=== PATIENT | male | born 1945 | race Caucasian/White ===

== ENCOUNTER 2024-03-09 11:19 | Inpatient (IN) | payer OTHER, MEDICARE, SELFPAY ==
[2024-03-09] VITALS (9 sets, daily range): BP systolic 145–181; BP diastolic 84–110; PULSE 84–105; RESP 14–25; TEMP 36.7–37; O2SAT 91–97; BMI 41.5
--- NOTE | 2024-03-09 11:30 | ECG_ITS ---
[facility] Test Date: 2024-03-09 Pat Name: Luis Eduardo Hernandez Department: Room: Gender: Male Cardiology Physician: : 1945 Requested By: Concepcion Cervantes Order Number: [id number] Reading MD: CHARLES KING Measurements Intervals [place] Rate: 106 P: 0 DE: 0 QRS: 41 QRSD: 89 T: -7 QT: 344 QTc: 459 Interpretive Statements ATRIAL FIBRILLATION WITH RAPID VENTRICULAR RESPONSE LOW QRS VOLTAGE IN PRECORDIAL LEADS [QRS DEFLECTION < 1.0 mV IN CHEST LEADS] NONSPECIFIC ST & T-WAVE ABNORMALITY ABNORMAL RHYTHM ECG INTERPRETATION BASED ON A DEFAULT AGE OF 40 YEARS No previous ECG available for comparison Electronically Signed On 03-09-2024 16:07:01 CHILDREN'S AUTHOR by CHARLES KING [id number]
--- NOTE | 2024-03-09 11:45 | XR_ITS ---
WS: [id number] Exam: XR chest 1V portable [id number] Date/Time of Exam: 03/09/2024 11:49 AM Reason For Exam: sob No priors. There is RIGHT basal pleural effusion with compressive atelectasis of the RIGHT lower lobe. The LEFT lung is clear. No infiltrates. No pneumothorax. Heart size is top limits normal. The mediastinum is n ormal in contour. Bony structures appear normal. XR/XR chest 1V portable [id number] IMPRESSION: 1. RIGHT basal pleural effusion with compressive atelectasis of the RIGHT lower lobe.
--- NOTE | 2024-03-09 11:56 | ED_ITS ---
HPI - Arrhythmia/Palpitations 2 General: Chief Complaint: Arrhythmia/Palpitations Stated Complaint: cough, irregular heart beat([facility] Time Seen by Provider: 03/09/24 11:42 Source: patient Mode of arrival: ambulatory Limitations: no limitations History of Present Illness: 78-year-old male who states he went to [facility] clinic today because he been having cough congestion productive cough for last 2 days. He states that when there they noticed he had irregular heartbeat did an EKG and was noticing that he is in A-fib. Patient has no known history of A-fib states that he is not on any blood thinners she denies any chest pain or fever Associated symptoms: Deny nausea or vomiting Related Data Home Medications Medication Instructions Recorded Confirmed dextromethorphan-guaifenesin ER 60 1 tab PO Q12H 03/09/24 03/09/24 mg-1,200 mg tab,extend release,12hr (Mucinex DM) byzdix-YP-EK-acetamin 25 mg(n)-10 30 ml PO Q8H PRN cough and 03/09/24 03/09/24 mg-20 mg(d)-650 mg/30 mL congestion liquids,seq (Day-Night Severe Cold-Flu) Allergies Allergy/AdvReac Type Severity Reaction Status Date / Time No Known Allergies Allergy Verified 03/09/24 11:37 Review of Systems 2 Const: Denies: fever(s), chills, body aches or change in appetite ENMT: Denies: throat pain or dental pain Card: Denies: chest pain Resp: Reports: productive cough GI: Denies: abdominal pain, nausea, vomiting or diarrhea : Denies: dysuria Musc: Denies: neck pain or back pain Skin/Breast: Denies: rash Neuro: Denies: headache(s) Physical Exam 2 Const: COMMON NORMALS: no acute distress, patient oriented x3 and healthy appearing HENMT: COMMON NORMALS: normocephalic and atraumatic HEAD & SCALP: n ormocephalic and atraumatic Neck/C-Spine: COMMON NORMALS: full ROM and supple Chest: COMMONS NORMALS: normal inspection of the chest Resp: COMMON NORMALS: normal respiratory effort, No retractions, No use of accessory muscles and clear to auscultation bilaterally AUSCULTATION: clear to auscultation bilaterally Cardio: COMMON NORMALS: No murmurs present (Cardio) RATE: tachycardic R HYTHM: abnormal rhythm irregularly irregular GI: COMMON NORMALS: Normal to inspection, nondistended, normoactive bowel sounds present, Soft to palpation, non-tender and no masses PALPATION: Yes Soft to palpation Extremity: COMMON NORMALS: normal to inspection and full ROM Neuro: COMMON NORMALS: patient oriented x3, moves all extremities and no focal motor deficits Psych: COMMON NORMALS: mental status grossly normal, Normal thought process present and cooperative THOUGHT PROCESS: Normal thought process present Skin: COMMON NORMALS: no rashes or lesions noted and no wounds GENERAL SKIN EXAM: no rashes or lesions noted Course 2 Vital Signs: Vital signs: Vital Signs Temperature 98.0 F 03/09/24 11:29 Pulse Rate 88 03/09/24 13:33 Respiratory Rate 14 03/09/24 11:29 Blood Pressure 176/108 03/09/24 13:33 Pulse Oximetry 96 03/09/24 13:33 Oxygen Delivery Me thod Room Air 03/09/24 13:33 MDM - Arrhythmia/Palpitations Medical Decision Making Patient presents here with new onset A-fib patient also with lower extreme edema and pleural effusion likely has undiagnosed CHF heart rate here improved after Cardizem I spoke to the hospitalist will admit at this time. Medical Records I reviewed the patient's medical records. Lab Data I reviewed the patient's lab results. 03/09/24 12:28 03/09/24 12:28 Radiology Impressions Chest X-Ray 03/09/24 11:45 IMPRESSION: 1. RIGHT basal pleural effusion with compressive atelectasis of the RIGHT lower lobe. Laboratory Results WBC 8.16 10^3/uL (3.29-11.43) 03/09/24 12:28 RBC 4.63 10^6/uL (3.85-5.65) 03/09/24 12:28 Hgb 14.20 g/dL (11.27-16.99) 03/09/24 12:28 Hct 42.4 % (37-53) 03/09/24 12:28 MCV 91.6 fl (82-101) 03/09/24 12:28 MCH 30.7 pg (27-33) 03/09/24 12: MCHC 33.5 g/dL (30-55) 03/09/24 12:28 RDW 13.9 % (12.1-15.1) 03/09/24 12:28 Plt Count 185 10^3/cmm (157-399) 03/09/24 12:28 MPV 9.6 fL (7.4-10.4) 03/09/24 12:28 Neut % (Auto) 75.5 % 03/09/24 12:28 Lymph % (Auto) 13.0 % 03/09/24 12:28 Glenn % (Auto) 9.2 % 03/09/24 12:28 Eos % (Auto) 0.9 % 03/09/24 12:28 Baso % (Auto) 1.0 % 03/09/24 12:28 Neut # (Auto) 6.17 10^3/uL (1.8-7.7) 03/09/24 12:28 Lymph # (Auto) 1.1 10^3/uL (0.8-4.8) 03/09/24 12:28 Glenn # (Auto) 0.8 10^3/uL (0.2-0.9) 03/09/24 12:28 Eos # (Auto) 0.1 10^3/uL (0.0-0.8) 03/09/24 12:28 Baso # (Auto) 0.1 10^3/uL (0.0-0.1) 03/09/24 12:28 Nucleated RBC % (auto) 0 % 03/09/24 12:28 Nucleated RBCs # 0.0 /100WBC 03/09/24 12:28 PT 15.00 SECONDS (12.1-14.9) H 03/09/24 12:28 INR 1.14 (0.8-1.2) 03/09/24 12:28 Sodium 140 mmol/L (136-145) 03/09/24 12:28 Potassium 3.9 mmol/L (3.5-5.1) 03/09/24 12:28 Chloride 103 mmol/L (98-107) 03/09/24 12:28 Carbon Dioxide 23 mmol/L (22-29) 03/09/24 12:28 Anion Gap 17.9 (5-19) 03/09/24 12:28 BUN 12 mg/dL (8-23) 03/09/24 12:28 Creatinine 0.7 mg/dL (0.7-1.2) 03/09/24 12:28 GFR Calculation Not Reportable 03/09/24 12:28 Glucose 116 mg/dL (65-115) H 03/09/24 12:28 Calculated Osmolality 291 mOsm/kg (285-295) 03/09/24 12:28 Calcium 9.2 mg/dL (8.5-10.5) 03/09/24 12:28 Total Bilirubin 1.6 mg/dL (0.15-1.2) H 03/09/24 12:28 AST 38 U/L (0-40) 03/09/24 12:28 ALT 14 U/L (0-41) 03/09/24 12:28 Alkaline Phosphatase 111 U/L (40-130) 03/09/24 12:28 NT-Pro-B Natriuret Pep 1592 pg/mL (0-450) H 03/09/24 12:28 Total Protein 7.1 g/dL (6.6-8.7) 03/09/24 12:28 Albumin 3.9 g/dL (3.5-5.2) 03/09/24 12:28 Globulin 3.2 g/dL (1.3-4.6) 03/09/24 12:28 All radiology interpretation(s) finalized by discharge EKG Data EKG 1: I personally reviewed and interpreted this EKG as follows: EKG interpretation date: 03/09/24 EKG interpretation time: 11:30 Interpretation: afib hr [address] elevation qrs 89 qtc 406 Other EKG comments: Chest X-Ray 03/09/24 11:45 IMPRESSION: 1. RIGHT basal pleural effusion with compressive atelectasis of the RIGHT lower lobe. Discharge Plan Discharge Patient Disposition: Admitted As Inpatient Clinical Impression: Atrial fibrillation, Pleural effusion Condition: Stable Prescriptions: No Action dextromethorphan-guaifenesin [Mucinex DM] 60-1,200 mg Tablet Extended Release 12 Hr 1 tab PO Q12H Day-Night Severe Cold-Flu 14-92-34-650 mg/30 mL Liquid, Sequential 30 ml PO Q8H PRN (Reason: cough and congestion ) Coding Level of Care Code ED Coiled Tubing Supervisor for Chg Radha
[2024-03-09 12:38] LABS: Basophils # 0.1 10^3/uL (0.0-0.1); Eosinophils # 0.1 10^3/uL (0.0-0.8); Eosinophils % 0.9 %; Hematocrit 42.4 % (37-53); Lymphocytes # 1.1 10^3/uL (0.8-4.8); Mean Corpuscular HGB Conc 33.5 g/dL (30-55); Mean Corpuscular Hemoglobin 30.7 pg (27-33); Mean Corpuscular Volume 91.6 fl (82-101); Mean Platelet Volume 9.6 fL (7.4-10.4); Monocytes # 0.8 10^3/uL (0.2-0.9); Monocytes % 9.2 %; Neutrophils # 6.17 10^3/uL (1.8-7.7); Neutrophils % 75.5 %; Nucleated Red Blood Cells % 0 %; Platelet Count 185 10^3/cmm (157-399); Red Blood Count 4.63 10^6/uL (3.85-5.65); Red Cell Distribution Width 13.9 % (12.1-15.1); White Blood Count 8.16 10^3/uL (3.29-11.43)
[2024-03-09] MEDS: dilTIAZem 5 mg/mL SDV 5 mL 10 MG IVP (12:38)
[2024-03-09 12:44] LABS: INR 1.14 (0.8-1.2)
[2024-03-09 12:57] LABS: Alanine Aminotransferase 14 U/L (0-41); Albumin Level 3.9 g/dL (3.5-5.2); Alkaline Phosphatase 111 U/L (40-130); Anion Gap 17.9 (5-19); Aspartate Amino Transferase 38 U/L (0-40); Blood Urea Nitrogen 12 mg/dL (8-23); Calcium 9.2 mg/dL (8.5-10.5); Carbon Dioxide 23 mmol/L (22-29); Chloride 103 mmol/L (98-107); Globulin 3.2 g/dL (1.3-4.6); Glucose 116 mg/dL (65-115); NT Pro B Type Natriuretic Pept 1592 pg/mL (0-450); Osmolality Calculated 291 mOsm/kg (285-295); Potassium 3.9 mmol/L (3.5-5.1); Sodium 140 mmol/L (136-145); Total Bilirubin 1.6 mg/dL (0.15-1.2); Total Protein 7.1 g/dL (6.6-8.7)
[2024-03-09] MEDS: FUROsemide 10 mg/mL SDV 10mL 60 MG IVP (13:21)
[2024-03-09] MEDS: cefTRIAXone 1,000 mg SDV 1000 MG IVP (13:22)
[2024-03-09 13:53] LABS: Covid PCR NEGATIVE (Negative); Influenza A NEGATIVE (Negative); Influenza B NEGATIVE (Negative); Respiratory Syncytial Virus Ce NEGATIVE (Negative)
--- NOTE | 2024-03-09 14:30 | P.HP_ITS ---
Providers/Chief Complaint 2 Chief Complaint: cough, irregular heart beat([facility] History of Present Illness Luis Eduardo Hernandez is a 78 year old male who present to the hospital for lower extremity swelling, palpitations, he [facility] who was sent to the ER for A-fib RVR. Patient is stating that if he is working fine and able to carry out daily activities he would not see a doctor. He has been experiencing lower extremity swelling for quite some time, has not been diagnosed with [place] CHF coronary disease A-fib atrial flutter hypertension or diabetes. In the ER he has been diagnosed with A-fib RVR he has received diltiazem along Lasix. ER doctor treated him for pneumonia but x-ray is showing atelectasis, patient is endorsing chest congestion, white sputum production with cough no fever nausea vomiting or diarrhea. Patient is not endorsing chest pain Patient is stating that he does not understand the concept of CHF if he is able to carry out his daily activities. Review of Systems 2 Const: Denies: fever(s) Eyes: Denies: change in vision ENMT: Denies: throat pain Card: Reports: palpitations and swelling of feet/ankles Resp: Reports: dyspnea GI: Denies: abdominal pain Medications/Allergies Home Medications Medication Instructions Recorded Confirmed Last Taken Type dextromethorphan-guaifenesin ER 60 1 tab PO Q12H 03/09/24 03/09/24 03/08/24 History mg-1,200 mg tab,extend release,12hr (Mucinex DM) phsxlf-DC-LU-acetamin 25 mg(n)-10 30 ml PO Q8H PRN cough and 03/09/24 03/09/24 Unknown History mg-20 mg(d)-650 mg/30 mL congestion liquids,seq (Day-Night Severe Cold-Flu) Allergies Allergy/AdvReac Type Severity Reaction Status Date / Time No Known Allergies Allergy Verified 03/09/24 11:37 PFSH Acute 2 PFSH: Medical History No pertinent past medical history Vitals/I&O/Wt Last Vital Signs Temp 98.0 F 03/09/24 11:29 Pulse 88 03/09/24 13:33 Resp 14 03/09/24 11:29 BP 176/108 03/09/24 13:33 Pulse Ox 96 03/09/24 13:33 O2 Del Method Room Air 03/09/24 13:33 Weight last 48 hrs Weight 135.171 kg Physical Exam 2 Narrative: Morbidly obese male Sitting at the bedside Awake and alert Currently on room air Hypertensive A-fib RVR Sign of fluid overload present No audible stridor or wheezing No active chest pain Pleasant and cooperative Nonfocal neuroexam Data 03/09/24 12:28 03/09/24 12:28 Micro: Microbiology 03/09/24 13:20 Blood Culture - Preliminary Blood SPECIMEN COLLECTED 03/09/24 12:46 Blood Culture - Preliminary Blood SPECIMEN COLLECTED A&P Assessment and plan (1) Atrial fibrillation: (2) New onset of congestive heart failure: (3) Morbidly obese: (4) Sleep apnea: Plan New onset CHF Start IV diuresis Significant signs of fluid overload Currently on room air A-fib RVR new onset Start patient on Eliquis 5 mg twice daily Sam Vascor 3 Start patient on Cardizem 30 mg every 6 hours Echo has been requested, will request pulse ox to rule out sleep apnea Hypertension: Will add low-dose lisinopril for now along diltiazem and Lasix Check TSH, D-dimer, B12, A1c level Cardiac diet Full code Attestations 2 Medical Necessity Statement*: Anticipating less than 2 midnights for management evaluation of A-fib RVR, new onset CHF, Diagnoses Atrial fibrillation I48.91 New onset of congestive heart failure I50.9 Morbidly obese E66.01 Sleep apnea G47.30
[2024-03-09] MEDS: AZITHROMYCIN ADD-Vantage 500 MG in 0.9% NaCl ADD-Vantage 250 ML 250 MG IV (14:40)
[2024-03-09 15:08] LABS: D Dimer 1.35 ug/mLFEU (0-0.59)
--- NOTE | 2024-03-09 18:30 | USCV_ITS ---
Luis Eduardo Hernandez Age: 78 Gender: M : 1945 Exam Date: 03/09/2024 22:03 Ordering Phys: Luis Eduardo Dahl MD Technologist: SUREKHA [place] [facility] [place] chf, history of atrial fibrillation BP: 162 / 100 HR: 88 Rhythm: Atrial fibrillation Technical Quality: Adequate MEASUREMENTS (Male / Female) Normal Values 2D ECHO LV Diastolic Diameter PLAX 3.1 cm 4.2 - 5.9 / 3.9 - 5.3 cm IVS Diastolic Thickness 1.6 cm 0.6 - 1.0 / 0.6 - 0.9 cm IVS Systolic Thickness 2.1 cm LVPW Diastolic Thickness 1.6 cm 0.6 - 1.0 / 0.6 - 0.9 cm LVPW Systolic Thickness 1.7 cm LVOT Diameter 2.2 cm LV Ejection Fraction 2D Teich 62.3 % LV Ejection Fraction MOD 4C 71.5 % LV Ejection Fraction MOD 2C 47.0 % LV Ejection Fraction 2C AL 48.0 % LA Diameter 2.1 cm Aorta at Sinotubular Diameter 3.0 cm IVC Diameter 3.0 cm M-MODE LA Ao Ratio MM 1.2 AV Cusp Separation MM 1.9 cm DOPPLER AV Peak Velocity 143.0 cm/s LVOT Peak Velocity 86.0 cm/s AV Area Cont Eq vti 1.9 cm squared AV Area Cont Eq pk 2.2 cm squared MV Peak Velocity 103.0 cm/s MV Area PHT 4.3 cm squared Mitral E to A Ratio 0.0 TR Peak Velocity 222.0 cm/s TR Peak Gradient 19.7 mmHg PV Peak Velocity 101.0 cm/s FINDINGS Left Ventricle Possibly normal LV size ejection fraction of 65%. No gross wall motion normalities. Right Ventricle Possibly normal RV size ejection fraction Right Atrium Appears to be moderately dilated. LE near echodensity in the right atrium, possible prominent eustachian valve Left Atrium Appears to be mildly dilated Mitral Valve No gross abnormalities noted Aortic Valve No gross abnormalities noted Tricuspid Valve Mild tricuspid valve regurgitation. The PA pressure estimation could be misleading because of the poor Doppler signal.- Calculated as 35 mmHg Pulmonic Valve No gross abnormalities noted Pericardium Aorta Normal aortic annulus size. IVC Dilated IVC with decreased respiratory variation. CONCLUSIONS Possibly normal LV size ejection fraction of 65%. No gross wall motion normalities. Moderate biatrial enlargement A linear echodensity in the right atrium, may suggest prominent eustachian valve Mild tricuspid valve regurgitation. Estimated PA pressure 35 mmHg, could be misleading because of the poor Doppler signals There is no pericardial effusion. Technically difficult study because of poor apical windows Dr Laurent Hammond MD FACC (Electronically Signed) Final Date: 10 March 2024 07:31 S
[2024-03-09] MEDS: dilTIAZem 30 mg Tablet PO ×2 (18:49→23:59)
[2024-03-09] MEDS: magnesium oxide 400 mg tablet PO (18:49)
[2024-03-09 19:07] LABS: Thyroid Stimulating Hormone 4.02 uIU/mL (0.27-4.20)
[2024-03-09 20:09] LABS: Troponin(5th) Baseline 21 ng/L (0-15)
--- NOTE | 2024-03-09 20:36 | ECG_ITS ---
[facility] Date: 2024-[facility]-09 Pat Name: Luis Eduardo Hernandez Department: Room: 111 Gender: Male Seismic Prospecting Observer: : 1945 Requested By: Luis Eduardo Dahl Order Number: [id number] Markie MD: Laurent Hammond M.D. Measurements Intervals [place] Rate: 92 P: 0 NC: 0 QRS: 52 QRSD: 76 T: 15 QT: 353 QTc: 438 Interpretive Statements ATRIAL FIBRILLATION LOW QRS VOLTAGE IN PRECORDIAL LEADS [QRS DEFLECTION < 1.0 mV IN CHEST LEADS] NONSPECIFIC ST & T-WAVE ABNORMALITY ABNORMAL RHYTHM ECG Compared to ECG 03/09/2024 11:30:50 No significant changes Electronically Signed On 03-11-2024 01:11:09 ATHLETICS DIRECTOR by Laurent Hammond M.D. [id number]
--- NOTE | 2024-03-09 21:53 | PC.RESP ---
overnight pulse ox started at 2153. Patient on baseline room air.
[2024-03-09 22:04] LABS: Troponin 5 2HR 20.55 ng/L (0-15)
[2024-03-09 22:06] LABS: Troponin 5 2HR Delta -0.45 ABS# (0-10)
[2024-03-09 22:23] LABS: Estmated Average Glucose 103; Hemoglobin A1C 5.2 % (4.0-6.0)
[2024-03-09] MEDS: lisinopril 10 mg Tablet PO (22:32)
[2024-03-10] VITALS (12 sets, daily range): BP systolic 123–155; BP diastolic 74–105; PULSE 73–101; RESP 17–24; TEMP 36.8–37.8; O2SAT 96–98
--- NOTE | 2024-03-10 00:36 | ECG_ITS ---
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 Measurements Intervals [place] Rate: 86 P: 0 OK: 0 QRS: 55 QRSD: 83 T: -37 QT: 383 QTc: 461 Interpretive Statements ATRIAL FIBRILLATION WITH ABERRANT CONDUCTION OR VENTRICULAR PREMATURE COMPLEXES NONSPECIFIC ST & T-WAVE ABNORMALITY Compared to ECG 03/09/2024 21:47:22 Ventricular premature complex(es) now present Aberrant conduction of supraventricular beat(s) now present T-wave abnormality still present Electronically Signed On 03-11-2024 01:11:13 EMBRYOLOGY PROFESSOR by Laurent Hammond M.D. [id number]
[2024-03-10 04:02] LABS: Basophils # 0.1 10^3/uL (0.0-0.1); Basophils % 0.6 %; Eosinophils # 0.1 10^3/uL (0.0-0.8); Eosinophils % 0.5 %; Hematocrit 41.4 % (37-53); Lymphocytes # 1.3 10^3/uL (0.8-4.8); Lymphocytes % 12.5 %; Mean Corpuscular HGB Conc 33.6 g/dL (30-55); Mean Corpuscular Volume 92.4 fl (82-101); Mean Platelet Volume 9.4 fL (7.4-10.4); Monocytes # 1.1 10^3/uL (0.2-0.9); Monocytes % 11.1 %; Neutrophils # 7.58 10^3/uL (1.8-7.7); Nucleated Red Blood Cells % 0 %; Platelet Count 188 10^3/cmm (157-399); Red Blood Count 4.48 10^6/uL (3.85-5.65)
[2024-03-10 04:26] LABS: Blood Urea Nitrogen 13 mg/dL (8-23); Calcium 9.3 mg/dL (8.5-10.5); Carbon Dioxide 26 mmol/L (22-29); Chloride 102 mmol/L (98-107); Glucose 116 mg/dL (65-115); Magnesium 1.9 mg/dL (1.7-2.3); Osmolality Calculated 289 mOsm/kg (285-295); Sodium 139 mmol/L (136-145)
[2024-03-10 04:43] LABS: Anion Gap 14.8 (5-19); Potassium 3.8 mmol/L (3.5-5.1)
[2024-03-10] MEDS: acetaminophen 500 mg Tablet PO (04:45)
[2024-03-10] MEDS: dilTIAZem 30 mg Tablet PO ×3 (06:24→17:33)
--- NOTE | 2024-03-10 08:19 | CTR_ITS ---
PROCEDURE INFORMATION: Exam: CT Chest With Contrast; Diagnostic Exam date and time: 03/10/2024 9:25 AM Age: 78 years old Clinical indication: Shortness of breath; Additional info: Right pleural effusion TECHNIQUE: Imaging protocol: Diagnostic computed tomography of the chest with contrast. Radiation optimization: All CT scans at this facility use at least one of these dose optimization techniques: automated exposure control; mA and/or kV adjustment per patient size (includes targeted exams where dose is matched to clinical indication); or iterative reconstruction. Contrast material: OMNI 350; Contrast volume: 100 ml; Contrast route: INTRAVENOUS (IV); COMPARISON: CR XR chest 1V portable [id number] 03/09/2024 11:49 AM RADIATION DOSE METRICS: Total DLP (mGy-cm): 703.57 FINDINGS: Lungs: Multiple granulomas at the lung bases. Right lower lobe atelectasis adjacent to pleural effusion. Pleural spaces: Moderate-sized right pleural effusion. Heart: Plaque-like calcification along the anterior and inferior pericardial reflection. Coronary arteries: No calcified coronary atherosclerotic disease. Lymph nodes: Left hilar and mediastinal calcified lymph nodes. Vasculature: Unremarkable. No aortic aneurysm. Adrenal glands: Indeterminate right adrenal mass measuring 1.7 x 1.5 cm. Bones/joints: Diffuse degenerative change of the visualized osseous structures. Soft tissues: Unremarkable. CT/CT chest w con* [id number] IMPRESSION: 1. Nonspecific right pleural effusion with associated basilar atelectasis, difficult to exclude superimposed infection. No indication of empyema. 2. Findings which can be seen in constrictive pericarditis. Correlate clinically. Alternatively pericardial calcifications may represent previous infection/insult. 3. Indeterminate right adrenal mass. Recommend MRI dedicated adrenal protocol for further assessment on an outpatient basis.
--- NOTE | 2024-03-10 08:35 | P.PN_ITS ---
Subjective 2 Subjective: History and physical. Denies any chest pain currently. Is coughing up some colored sputum. No vomiting. Medications: Reviewed: Yes Vitals/I&O/Wt Last Vital Signs Temp 98.5 F 03/10/24 08:00 Pulse 88 03/10/24 08:00 Resp 24 H 03/10/24 08:00 BP 148/98 03/10/24 08:00 Pulse Ox 97 03/10/24 08:00 O2 Del Method Room Air 03/10/24 08:00 03/09/24 03/10/24 03/10/24 22:59 06:59 14:59 Intake Total 650 / 650 Output Total 260 / 260 300 / 560 Balance 390 / 390 -300 / 90 Weight last 48 hrs Weight 135.987 kg Weight 135.171 kg Weight 135.171 kg Physical Exam 2 Narrative: General Exam no distress Neck is supple Cardiovascular irregular, irregular with a 2/6 systolic murmur Lungs clear, decreased breath sounds right lung Abdomen is soft Extremities no cyanosis. 3+ edema noted to the knees Data 03/10/24 03:45 03/10/24 03:45 Micro: Microbiology 03/09/24 13:20 Blood Culture - Preliminary Blood SPECIMEN COLLECTED 03/09/24 12:46 Blood Culture - Preliminary Blood SPECIMEN COLLECTED A&P Assessment and plan (1) New onset of congestive heart failure: Clinically patient has heart failure. Echocardiogram is back demonstrating preserved EF. Consistent with diastolic heart failure. May be exacerbated by A-fib Continue diuresis, Lasix 40 mg IV every 12 hours Cardiology consultation DOMENIC inhibitor (2) Atrial fibrillation: Diltiazem initiated. Currently on 30 mg every 6 hours with good response and heart rate Anticoagulation with apixaban was started. This will be have to be held because a right thoracentesis may be indicated. Will switch to Lovenox. Cardiology consult as above TSH and magnesium checked and normal (3) Pleural effusion: Could be seen with heart failure, but also a possible concern with parapneumonic effusion. Will obtain thoracentesis. Apixaban was started so we will have to hold off on this until perhaps tomorrow. Hold on any further dosing. (4) Pneumonia: Continue Rocephin and azithromycin Sputum culture COVID testing was done and negative Plan Other medical problems as as listed in past medical history Full code Lovenox will suffice for DVT prophylaxis along with SCDs. Attestations 2 Medical Necessity Statement*: Needs continued hospital stay for evaluation of cardiac arrhythmia, treatment of pneumonia, treatment of CHF with IV diuresis Diagnoses New onset of congestive heart failure I50.9 Atrial fibrillation I48.91 Pleural effusion J90 Pneumonia J18.9 Time Spent (min) 24
[2024-03-10] MEDS: potassium chloride ER 20 mEq Tablet PO (08:52)
[2024-03-10] MEDS: FUROsemide 10 mg/mL SDV 4mL 40 MG IVP ×2 (08:52→20:16)
[2024-03-10] MEDS: lisinopril 10 mg Tablet PO (08:52)
[2024-03-10] MEDS: AZITHROMYCIN ADD-Vantage 500 MG in 0.9% NaCl ADD-Vantage 250 ML 250 MG IV (08:52)
[2024-03-10] MEDS: apixaban 5 mg Tablet PO ×2 (08:52→20:16)
[2024-03-10] MEDS: cefTRIAXone 1,000 mg SDV 1000 MG IVP (08:52)
[2024-03-10] MEDS: sennosides-docusate Tablet 1 TAB PO (08:52)
[2024-03-10 09:11] LABS: Procalcitonin 0.08 ng/mL (0-0.5)
--- NOTE | 2024-03-10 10:31 | PC.CHAP ---
Pastoral Care Encounter/Spiritual Assessment Type of Contact [] Declined finished garment inspector visit [] Patient/Family/Request visit [] Outpatient visit [] Follow-up visit [] Physician referral [] Code/Alert [] Routine visit [] Staff referral [] Actively dying [] Patient sleeping [] Family support [] [] Out of room [] Palliative care [] [x] Receiving care in room [] Pre-surgical visit [] Trauma [] Long length of stay [] ICU visit [] Other: Relational/Emotional Strength [] Patient feels connected with others/family/visitors/staff [] Distress [] Loneliness/isolation [] Abandonment Spirituality of Patient [] Person of Anna [] Attends Pentecostalism of their Anna [] Believes in Prayer [] Reads Bible or Taoism materials [] There are Spiritual issues to be addressed Continuous Drier Helper Interventions [] Prayer [] Active listening [] Non-anxious presence [] Spiritual/emotional support [] Crisis/trauma care [] Spiritual counseling [] Bereavement support [] Provided bereavement packet [] Provided Bible/devotional materials [] Provided toy/stuffed animal, coloring book to patient or family member [] Provided Communion [] Anointing/[place] [] Salvation [] Completed spiritual assessment [] Other: Impact on Illness or Injury [] Angry [] Fearful [] Anxious [] Often cries [] Exhaustion [] Unable to work [] Unable to attend moravian [] Unable to walk/stand [] Unable to read [] Unable to drive [] Unable to eat/drink [] Unable to sleep [] Unable to be with family [] Patient intubated [] Other: Summary Time spent with patient
[2024-03-10] MEDS: carvedilol 3.125 mg Tablet PO (17:33)
--- NOTE | 2024-03-10 20:23 | P.CONIM_ITS ---
<Statement entered by Luis Eduardo Hardy MD - 03/11/24 08:36> Patient was evaluated and cared for in conjunction with an advanced practice practitioner. I personally examined the patient and reviewed the chart and all pertinent data including imaging, telemetry, and laboratory results. I discussed the patient in detail with the advanced practice practitioner. Please see their note for complete H&P testing result and agreed upon plan of care for the patient. 78-year-old male past medical history significant for obesity uncontrolled hypertension admitted with worsening of shortness of breath lower extremity edema weight gain A-fib with rapid ventricular response. Patient was treated with IV diuretics and Cardizem. His heart rate currently under control. We have been asked to assist in his care. He denies any chest pain rule out for non-ST elevation NM. GENERAL: Patient is alert, awake and oriented x3. HEART: Irregularly irregular S1 and S2. No murmur, rub or gallop. LUNGS: Clear to auscultate bilaterally. Abdomen: Distended with abdominal wall edema nontender CENTRAL NERVOUS SYSTEM: Grossly nonfocal. EXTREMITIES: Lower extremities with 2+ edema bilaterally. Assessment and plan Acute decompensated diastolic heart failure Atrial fibrillation rapid ventricle response Morbid obesity Uncontrolled hypertension Plan to diurese patient over next 24 hours with a goal of 1 to 1.5 L negative, increase Lasix to 40 mg 3 times daily and assess the response. Will replenish electrolytes. Start patient on carvedilol Eliquis agreed for stroke prevention from A-fib perspective. Once euvolemic we will ask for stress test to rule out ischemic etiology. Documented by User: Cheryl Ruiz NP 03/10/24 20:52 Providers/Reason For Consult 2 Consulting Physician/Specialty*: Dr. Hardy Reason for Consult*: new onset heart failure, afib Requesting Physician: Dr. Harper Attending Physician: Yobany Harper MD History of Present Illness History of Present Illness Luis Eduardo Hernandez is a 78 year old male who presented to the hospital for lower extremity swelling, palpitations, he was at [facility] and was sent to the ER for A-fib RVR. Patient is stating that if he is working fine and able to carry out daily activities he would not see a doctor. He has been experiencing lower extremity swelling for quite some time, has not been diagnosed with NM CHF coronary disease A-fib atrial flutter hypertension or diabetes. In the ER he received diltiazem and Lasix. He denies chest pain. Review of Systems 2 Narrative: Denies fever, chills/body aches Denies chest pain Reports chronic lower extremity edema Denies shortness of breath Denies nausea/vomiting Denies s/s of stroke Medications/Allergies Home Medications Medication Instructions Recorded Confirmed Last Taken Type dextromethorphan-guaifenesin ER 60 1 tab PO Q12H 03/09/24 03/09/24 03/08/24 History mg-1,200 mg tab,extend release,12hr (Mucinex DM) zngbdu-LX-WA-acetamin 25 mg(n)-10 30 ml PO Q8H PRN cough and 03/09/24 03/09/24 Unknown History mg-20 mg(d)-650 mg/30 mL congestion liquids,seq (Day-Night Severe Cold-Flu) Allergies Allergy/AdvReac Type Severity Reaction Status Date / Time No Known Allergies Allergy Verified 03/09/24 11:37 Current Medications Generic Name Dose Route Start Last Admin Trade Name Freq PRN Reason Stop Dose Admin Acetaminophen 500 mg 03/09/24 18:30 03/10/24 04:45 Acetaminophen 500 Mg Tablet PO 500 mg Q4H PRN Administration fever Apixaban 5 mg 03/10/24 21:00 03/10/24 20:16 Apixaban 5 Mg Tablet PO 5 mg BID@0900,2100 REHANA Administration Carvedilol 3.125 mg 03/10/24 18:00 03/10/24 17:33 Carvedilol 3.125 Mg Tablet PO 3.125 mg BID REHANA Administration Ceftriaxone Sodium 1,000 mg 03/10/24 08:30 03/10/24 08:52 Ceftriaxone 1,000 Mg Sdv IVP 1,000 mg Q24H REHANA Administration Protocol Diltiazem HCl 30 mg 03/09/24 18:30 03/10/24 17:33 Diltiazem 30 Mg Tablet PO 30 mg Q6H REHANA Administration Furosemide 40 mg 03/10/24 21:00 03/10/24 20:16 Furosemide 10 Mg/Ml Sdv 4ml IVP 40 mg TID REHANA Administration Azithromycin 500 mg/ Sodium 250 mls @ 250 mls/hr 03/10/24 08:30 03/10/24 11:19 Chloride IV Infused Q24H REHANA Infusion Protocol Lisinopril 10 mg 03/10/24 09:00 03/10/24 08:52 Lisinopril 10 Mg Tablet PO 10 mg DAILY REHANA Administration Potassium Chloride 20 meq 03/10/24 09:00 03/10/24 08:52 Potassium Chloride Er 20 Meq Tablet PO 20 meq DAILY REHANA Administration Senna/Docusate Sodium 1 tab 03/10/24 09:00 03/10/24 08:52 Sennosides-Docusate Tablet PO 1 tab DAILY REHANA Administration PFSH Acute 2 PFSH: Medical History No pertinent past medical history Vitals/I&O/Wt Last Vital Signs Temp 98.2 F 03/10/24 19:56 Pulse 73 03/10/24 19:56 Resp 23 H 03/10/24 19:56 BP 126/74 03/10/24 19:56 Pulse Ox 98 03/10/24 19:56 O2 Del Method Room Air 03/10/24 19:56 03/10/24 03/10/24 03/10/24 06:59 14:59 22:59 Intake Total 726 / 726 360 / 1086 Output Total 300 / 560 1025 / 1025 200 / 1225 Balance -300 / 90 -299 / -299 160 / -139 Weight last 48 hrs Weight 299 lb 12.8 oz Weight 298 lb Weight 298 lb Physical Exam 2 Narrative: Alert and oriented x4 No acute distress 3+ edema bilateral lower extremities heart rate normal, irregularly irregular rhyth, no murmurs, s1 s2 normal No s/s of stroke present Lungs clear throughout Data 03/11/24 03:43 03/11/24 03:43 Micro: Microbiology 03/09/24 13:20 Blood Culture - Preliminary Blood NEGATIVE TO DATE 03/09/24 12:46 Blood Culture - Preliminary Blood NEGATIVE TO DATE 03/10/24 08:50 Gram Stain - Final Sputum - Expectorated Sputum Other data: Echo CONCLUSIONS Possibly normal LV size ejection fraction of 65%. No gross wall motion normalities. Moderate biatrial enlargement A linear echodensity in the right atrium, may suggest prominent eustachian valve Mild tricuspid valve regurgitation. Estimated PA pressure 35 mmHg, could be misleading because of the poor Doppler signals There is no pericardial effusion. Technically difficult study because of poor apical windows A&P Assessment and plan (1) New onset of congestive heart failure: (2) Atrial fibrillation: Qualifiers: Atrial fibrillation type: unspecified Qualified Code(s): I48.91 - Unspecified atrial fibrillation (3) Morbidly obese: (4) Pleural effusion: (5) Sleep apnea: Qualifiers: Sleep apnea type: unspecified type Qualified Code(s): G47.30 - Sleep apnea, unspecified Plan Patient with clinically evident new onset heart failure and afib rvr. His echo showed normal EF with no wall motion abnormalities. He has risk factors for arrhythmia including obesity, sleep apnea, and previously uncontrolled hypertension. Despite risk factors at some point coronary ischemia will need to be ruled out as cause. He recieved diltiazem 10 mg IV in the ER with improvement of heart rate. Currently on 30 mg q6 hours. Kidney function is good. Patient only about 300 negative. Will increase Lasix from 40 BID to 40 TID. If patient does not have good response to this, may need to add metolazone. Will add coreg 3.125 for heart failure, bp control, and heart rate control. Agree with adding Eliquis 5 mg BID for stroke prevention in the setting of afib. In the future, patient may need stress test to evaluate and help r/o underlying coronary ischemia as cause of new onset afib. Thank you, Dr. Harper, for allowing us to care for this very pleasant 78 year old gentleman. Consult Attestations 2 Medical Necessity Statement: Deferred to primary Coding Level of Care Code Acute Code for [facility] Diagnoses New onset of congestive heart failure I50.9 Atrial fibrillation, unspecified type I48.91 Atrial fibrillation type: unspecified Morbidly obese E66.01 Pleural effusion J90 Sleep apnea, unspecified type G47.30 Sleep apnea type: unspecified type Documented by User: Luis Eduardo Hardy MD 03/11/24 09:44 History of Present Illness History of Present Illness Luis Eduardo Hernandez is a 78 year old male who presented to the hospital for lower extremity swelling, palpitations, he was at [facility] and was sent to the ER for A-fib RVR. Patient is stating that if he is working fine and able to carry out daily activities he would not see a doctor. He has been experiencing lower extremity swelling for quite some time, has not been diagnosed with NM CHF coronary disease A-fib atrial flutter hypertension or diabetes. In the ER he received diltiazem and Lasix. He denies chest pain. Medications/Allergies Home Medications Medication Instructions Recorded Confirmed Last Taken Type dextromethorphan-guaifenesin ER 60 1 tab PO Q12H 03/09/24 03/09/24 03/08/24 History mg-1,200 mg tab,extend release,12hr (Mucinex DM) kiedwe-FL-HV-acetamin 25 mg(n)-10 30 ml PO Q8H PRN cough and 03/09/24 03/09/24 Unknown History mg-20 mg(d)-650 mg/30 mL congestion liquids,seq (Day-Night Severe Cold-Flu) Allergies Allergy/AdvReac Type Severity Reaction Status Date / Time No Known Allergies Allergy Verified 03/09/24 11:37 PFSH Acute 2 PFSH: Medical History No pertinent past medical history Data 03/11/24 03:43 03/11/24 03:43 A&P Assessment and plan (1) New onset of congestive heart failure: (2) Atrial fibrillation: Qualifiers: Atrial fibrillation type: unspecified Qualified Code(s): I48.91 - Unspecified atrial fibrillation (3) Morbidly obese: (4) Pleural effusion: (5) Sleep apnea: Qualifiers: Sleep apnea type: unspecified type Qualified Code(s): G47.30 - Sleep apnea, unspecified Coding Level of Care Code Acute Code for [facility] Diagnoses New onset of congestive heart failure I50.9 Atrial fibrillation, unspecified type I48.91 Atrial fibrillation type: unspecified Morbidly obese E66.01 Pleural effusion J90 Sleep apnea, unspecified type G47.30 Sleep apnea type: unspecified type
[2024-03-11] VITALS (9 sets, daily range): BP systolic 97–164; BP diastolic 64–101; PULSE 66–88; RESP 18–28; TEMP 36.4–36.8; O2SAT 97–98
[2024-03-11] MEDS: dilTIAZem 30 mg Tablet PO ×2 (00:40→06:30)
[2024-03-11 03:54] LABS: Basophils # 0.1 10^3/uL (0.0-0.1); Basophils % 0.8 %; Eosinophils # 0.3 10^3/uL (0.0-0.8); Eosinophils % 2.3 %; Lymphocytes # 2.1 10^3/uL (0.8-4.8); Lymphocytes % 19.4 %; Mean Corpuscular HGB Conc 32.4 g/dL (30-55); Mean Corpuscular Hemoglobin 30.9 pg (27-33); Mean Corpuscular Volume 95.5 fl (82-101); Mean Platelet Volume 9.5 fL (7.4-10.4); Monocytes # 1.3 10^3/uL (0.2-0.9); Monocytes % 11.6 %; Neutrophils # 7.07 10^3/uL (1.8-7.7); Neutrophils % 65.3 %; Nucleated Red Blood Cells % 0 %; Platelet Count 198 10^3/cmm (157-399); Red Cell Distribution Width 14.1 % (12.1-15.1); White Blood Count 10.83 10^3/uL (3.29-11.43)
[2024-03-11 04:15] LABS: Blood Urea Nitrogen 19 mg/dL (8-23); Calcium 9.1 mg/dL (8.5-10.5); Carbon Dioxide 25 mmol/L (22-29); Chloride 102 mmol/L (98-107); Creatinine Clr Calc Pharmacy 98.3455; Glucose 110 mg/dL (65-115); Magnesium 1.8 mg/dL (1.7-2.3); Osmolality Calculated 293 mOsm/kg (285-295); Sodium 140 mmol/L (136-145)
[2024-03-11 04:32] LABS: Anion Gap 16.8 (5-19); Potassium 3.8 mmol/L (3.5-5.1)
[2024-03-11] MEDS: AZITHROMYCIN ADD-Vantage 500 MG in 0.9% NaCl ADD-Vantage 250 ML 250 MG IV (07:49)
[2024-03-11] MEDS: potassium chloride ER 20 mEq Tablet PO (07:50)
[2024-03-11] MEDS: carvedilol 3.125 mg Tablet PO (07:50)
[2024-03-11] MEDS: cefTRIAXone 1,000 mg SDV 1000 MG IVP (07:50)
[2024-03-11] MEDS: sennosides-docusate Tablet 1 TAB PO (07:50)
[2024-03-11] MEDS: apixaban 5 mg Tablet PO (07:51)
[2024-03-11] MEDS: FUROsemide 10 mg/mL SDV 4mL 40 MG IVP (07:51)
[2024-03-11] MEDS: lisinopril 10 mg Tablet PO (07:51)
[2024-03-11] MEDS: metOLazone 5 MG Tablet 2.5 MG PO (08:57)
[2024-03-11] MEDS: potassium chloride ER 20 mEq Tablet 40 MEQ PO (08:58)
--- NOTE | 2024-03-11 09:21 | PC.CHAP ---
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 [] Patient/Family/Request visit [] Outpatient visit [] Follow-up visit [] Physician referral [] Code/Alert [x] Routine visit [] Staff referral [] Actively dying [] Patient sleeping [] Family support [] [] Out of room [] Palliative care [] [] Receiving care in room [] Pre-surgical visit [] Trauma [] Long length of stay [] ICU visit [] Other: Relational/Emotional Strength [x] Patient feels connected with others/family/visitors/staff [] Distress [] Loneliness/isolation [] Abandonment Spirituality of Patient [x] Person of Anna [] Attends Rastafari of their Anna [x] Believes in Prayer [] Reads Bible or Gnosticist materials [] There are Spiritual issues to be addressed Data Collector Interventions [x] Prayer [x] Active listening [] Non-anxious presence [x] Spiritual/emotional support [] Crisis/trauma care [] Spiritual counseling [] Bereavement support [] Provided bereavement packet [] Provided Bible/devotional materials [] Provided toy/stuffed animal, coloring book to patient or family member [] Provided Communion [] Anointing/Ebro [] Salvation [x] Completed spiritual assessment [] Other: Impact on Illness or Injury [] Angry [] Fearful [] Anxious [] Often cries [] Exhaustion [] Unable to work [] Unable to attend oriental orthodox [] Unable to walk/stand [] Unable to read [] Unable to drive [] Unable to eat/drink [] Unable to sleep [] Unable to be with family [] Patient intubated [] Other: Summary Time spent with patient 5 min
--- NOTE | 2024-03-11 11:09 | P.DS_ITS ---
Discharge Providers Date of Admission: 03/10/24 13:17 Date of Discharge: March 11, 2024 Attending Provider at Admission: Raffi Rodriguez MD Attending Provider at Discharge: Yobany Harper MD Diagnoses at Discharge Discharge Diagnosis (1) New onset of congestive heart failure: Status: Acute (2) Atrial fibrillation: Status: Acute Qualifiers: Atrial fibrillation type: unspecified Qualified Code(s): I48.91 - Unspecified atrial fibrillation (3) Morbidly obese: Status: Acute (4) Pleural effusion: Status: Acute (5) Sleep apnea: Status: Acute Qualifiers: Sleep apnea type: unspecified type Qualified Code(s): G47.30 - Sleep apnea, unspecified Reason for Visit Reason for Visit: cough, irregular heart beat([facility] by [facility]). Hospital Course Hospital Course Patient presented to the hospital with lower extremity swelling palpitations and new onset of A-fib with RVR. He reported he did not have a lot of symptoms. He was placed in the hospital, and started on IV diuresis, Eliquis for A-fib, as well as Cardizem. Echo was performed which demonstrated preserved EF. Chest x- ray suggested right pleural effusion and a CT was performed confirming this. There was also question of pneumonia secondary to purulent sputum, and fever. COVID testing was negative. He received Rocephin, and Zithromax while in the hospital. Patient refused evaluation of right pleural effusion with thoracentesis after risks and benefits were discussed. He was willing to take continued medical treatment for his congestive heart failure up until March 11 when he requested to go home. He was not fully diuresed at that time, but did not want to stay despite my efforts to convince him as well as cardiology. He will be discharged to home, with appropriate medications with close follow- up. I believe he needs a repeat chest x-ray in 1 to 2 weeks to check on his right pleural effusion, returning for shortness of breath or recurrent fever. He will finish up antibiotic treatment. Cardiology has written for his diuresis as an outpatient, ongoing medicines for blood pressure and A-fib, and wants him to be evaluated in their clinic in approximately 4 to 5 days. He was given an opportunity to ask questions and agrees with the plan. Physical Exam Narrative: General Exam no distress Neck is supple Cardiovascular irregular irregular with controlled rate of approximately 70 Lungs diminished breath sounds right but no crackles Abdomen soft Extremities 3+ edema bilaterally. Discharge Data Studies Completed and Pending Completed Studies During Hospitalization Category Date Time Status CT chest w con* [id number] Routine Cat Scan 03/10/24 08:19 Completed XR chest 1V portable [id number] Stat Exams 03/09/24 11:45 Completed CV. echo complete* [id number] Routine Ultrasound 03/09/24 18:30 Completed Pending at discharge Category Date Time Status Blood Culture Stat Lab 03/09/24 13:20 Results Sputum Culture and Gram Stain Routine Lab 03/10/24 08:50 Results Radiology Impressions Chest X-Ray 03/09/24 11:45 IMPRESSION: 1. RIGHT basal pleural effusion with compressive atelectasis of the RIGHT lower lobe. Chest CT 03/10/24 08:19 IMPRESSION: 1. Nonspecific right pleural effusion with associated basilar atelectasis, difficult to exclude superimposed infection. No indication of empyema. 2. Findings which can be seen in constrictive pericarditis. Correlate clinically. Alternatively pericardial calcifications may represent previous infection/insult. 3. Indeterminate right adrenal mass. Recommend MRI dedicated adrenal protocol for further assessment on an outpatient basis. Laboratory Results WBC 10.83 10^3/uL (3.29-11.43) 03/11/24 03:43 RBC 4.40 10^6/uL (3.85-5.65) 03/11/24 03:43 Hgb 13.60 g/dL (11.27-16.99) 03/11/24 03:43 Hct 42.0 % (37-53) 03/11/24 03:43 MCV 95.5 fl (82-101) 03/11/24 03:43 MCH 30.9 pg (27-33) 03/11/24 03:43 MCHC 32.4 g/dL (30-55) 03/11/24 03:43 RDW 14.1 % (12.1-15.1) 03/11/24 03:43 Plt Count 198 10^3/cmm (157-399) 03/11/24 03:43 MPV 9.5 fL (7.4-10.4) 03/11/24 03:43 Neut % (Auto) 65.3 % 03/11/24 03:43 Lymph % (Auto) 19.4 % 03/11/24 03:43 [place] % (Auto) 11.6 % 03/11/24 03:43 Eos % (Auto) 2.3 % 03/11/24 03:43 Baso % (Auto) 0.8 % 03/11/24 03:43 Neut # (Auto) 7.07 10^3/uL (1.8-7.7) 03/11/24 03:43 Lymph # (Auto) 2.1 10^3/uL (0.8-4.8) 03/11/24 03:43 [place] # (Auto) 1.3 10^3/uL (0.2-0.9) H 03/11/24 03:43 Eos # (Auto) 0.3 10^3/uL (0.0-0.8) 03/11/24 03:43 Baso # (Auto) 0.1 10^3/uL (0.0-0.1) 03/11/24 03:43 Nucleated RBC % (auto) 0 % 03/11/24 03:43 Nucleated RBCs # 0.0 /100WBC 03/11/24 03:43 PT 15.00 SECONDS (12.1-14.9) H 03/09/24 12:28 INR 1.14 (0.8-1.2) 03/09/24 12:28 D-Dimer 1.35 ug/mLFEU (0-0.59) H 03/09/24 12:28 Sodium 140 mmol/L (136-145) 03/11/24 03:43 Potassium 3.8 mmol/L (3.5-5.1) 03/11/24 03:43 Chloride 102 mmol/L (98-107) 03/11/24 03:43 Carbon Dioxide 25 mmol/L (22-29) 03/11/24 03:43 Anion Gap 16.8 (5-19) 03/11/24 03:43 BUN 19 mg/dL (8-23) 03/11/24 03:43 Creatinine 0.9 mg/dL (0.7-1.2) 03/11/24 03:43 GFR Calculation Not Reportable 03/11/24 03:43 Glucose 110 mg/dL (65-115) 03/11/24 03:43 Estimat Average Glucose 103 03/09/24 12:28 Hemoglobin A1c 5.2 % (4.0-6.0) 03/09/24 12:28 Calculated Osmolality 293 mOsm/kg (285-295) 03/11/24 03:43 Calcium 9.1 mg/dL (8.5-10.5) 03/11/24 03:43 Magnesium 1.8 mg/dL (1.7-2.3) 03/11/24 03:43 Total Bilirubin 1.6 mg/dL (0.15-1.2) H 03/09/24 12:28 AST 38 U/L (0-40) 03/09/24 12:28 ALT 14 U/L (0-41) 03/09/24 12:28 Alkaline Phosphatase 111 U/L (40-130) 03/09/24 12:28 Troponin T Baseline 21 ng/L (0-15) H 03/09/24 19:36 Troponin T 120 Minute 20.55 ng/L (0-15) H 03/09/24 21:30 Delta Troponin T -0.45 ABS# (0-10) L 03/09/24 21:30 Troponin T Hi Sens 6Hr 23.50 ng/L (0-15) H 03/10/24 00:57 Troponin T Hi Sens 6Hr Delta 2.50 ng/L (0-12) 03/10/24 00:57 NT-Pro-B Natriuret Pep 1592 pg/mL (0-450) H 03/09/24 12:28 Total Protein 7.1 g/dL (6.6-8.7) 03/09/24 12:28 Albumin 3.9 g/dL (3.5-5.2) 03/09/24 12:28 Globulin 3.2 g/dL (1.3-4.6) 03/09/24 12:28 Procalcitonin 0.08 ng/mL (0-0.5) 03/10/24 03:45 TSH 4.02 uIU/mL (0.27-4.20) 03/09/24 12:28 Coronavirus (PCR) Negative (Negative) 03/09/24 12:57 Influenza A (PCR) Negative (Negative) 03/09/24 12:57 Influenza Type B (PCR) Negative (Negative) 03/09/24 12:57 RSV (PCR) Negative (Negative) 03/09/24 12:57 Vitals Last Vital Signs Temp 97.5 F L 03/11/24 08:00 Pulse 67 03/11/24 09:29 Resp 28 H 03/11/24 09:29 BP 97/64 03/11/24 09:29 Pulse Ox 97 03/11/24 09:29 O2 Del Method Room Air 03/11/24 09:29 Discharge Plan Discharge Patient Disposition: Home Condition: Stable Prescriptions: New diltiazem HCl 120 mg Capsule,Extended Release 24hr 120 mg PO DAILY 30 Days Qty: 30 0RF furosemide [Lasix] 40 mg tablet 40 mg PO BID Qty: 60 0RF potassium chloride 20 mEq tablet extended release 20 meq PO BID Qty: 60 0RF metolazone 5 mg Tablet 2.5 mg PO DAILY 7 Days Qty: 5 0RF carvedilol 3.125 mg Tablet 3.125 mg PO BID 30 Days Qty: 60 0RF Eliquis 5 mg Tablet 5 mg PO BID@0900,2100 Qty: 60 0RF azithromycin [Zithromax] 500 mg tablet 500 mg PO DAILY 1 Days Qty: 1 0RF Rx Instructions: Take tomorrow 03/12 cefdinir 300 mg capsule 300 mg PO BID 7 Days Qty: 14 0RF Discontinued dextromethorphan-guaifenesin [Mucinex DM] 60-1,200 mg Tablet Extended Release 12 Hr 1 tab PO Q12H Day-Night Severe Cold-Flu 95-61-82-650 mg/30 mL Liquid, Sequential 30 ml PO Q8H PRN (Reason: cough and congestion ) Referrals: Sierra Faustin APRN [Referring] - 03/16/24 2:00 pm (Please arrange for repeat chest x-ray in approximately 1 to 2 weeks.) Bailey Salas FNP [Nurse Practitioner] - 4-7 days (1 week ) Discharge Diet: Cardiac Discharge Activity: Increase activity as tolerated Patient Instructions: Opioid Safety Activity Restrictions/Additional Instructions: Take all medicine as prescribed Take your last dose of Zithromax tomorrow, 7 more days of cefdinir Follow-up with your correspondence renew clerk in 4 to 7 days. BMP will need to be done at that time Follow-up with your primary care 3 to 5 days. I suggested repeat chest x-ray regarding your right pleural effusion as an outpatient in approximately 1 week to 2 weeks. Return for any fever, worsening shortness of breath, worsening swelling Discharge Attestations Time Spent in Discharge Care*: greater than 30 min Quality Metrics Clinical Quality Measures [ No reported AMI, CVA or VTE this stay] Coding Level of Care Code 85497 Total time (in minutes) for Discharge: 35 Diagnoses New onset of congestive heart failure I50.9 Atrial fibrillation, unspecified type I48.91 Atrial fibrillation type: unspecified Morbidly obese E66.01 Pleural effusion J90 Sleep apnea, unspecified type G47.30 Sleep apnea type: unspecified type
--- NOTE | 2024-03-11 14:50 | P.PN_ITS ---
<Statement entered by Luis Eduardo Hardy MD - 03/12/24 21:50> Patient was evaluated and cared for in conjunction with an advanced practice practitioner. I personally examined the patient and reviewed the chart and all pertinent data including imaging, telemetry, and laboratory results. I discussed the patient in detail with the advanced practice practitioner. Please see their note for complete H&P testing result and agreed upon plan of care for the patient. Overall patient feeling better heart rate is under control getting diuresis. He would like to leave as AMA. Advised patient not to leave still he needs diuresis and optimization of medicine for diastolic heart failure but patient adamant and would not like to stay GENERAL: Patient is alert, awake and oriented x3. HEART: Regular S1 and S2. No murmur, rub or gallop. LUNGS: Clear to auscultate bilaterally. CENTRAL NERVOUS SYSTEM: Grossly nonfocal. EXTREMITIES: Lower extremities with out edema bilaterally. Acute decompensated on chronic diastolic heart failure Obesity Sleep apnea New onset of atrial fibrillation Since patient would like to leave therefore we will switch him to oral medications including beta-ken Cardizem diuretics Advised and given heart failure education Advised to be compliant with medications and in case of worsening of shortness of breath PND orthopnea heart failure or any chest pain he should return back to the ER Will follow him up in the clinic Patient would like to leave AMA Subjective 2 Subjective: Patient still did not have a great response to the Lasix. He has a moderate to large right pleural effusion. We recommended the patient stay to get proper diuresis. He is very adamant about leaving. We have educated him that most likely if he leaves without proper treatment he will end up in severe heart failure potentially could or be intubated if he develops severe worsening fluid overload. He verbalized full understanding. He understands the risks and still wants to go. At this time we will have him go home on carvedilol Eliquis 5 mg twice daily diltiazem at the current dose of 120 mg Lasix 40 twice daily with metolazone 2.5 twice daily potassium 20 BID. We have asked him to weigh himself daily and follow back up with us in the clinic within 1 week. He states he is agreeable to this. Medications: Reviewed: Yes Vitals/I&O/Wt Last Vital Signs Temp 97.9 F 03/11/24 14:32 Pulse 88 03/11/24 14:32 Resp 20 H 03/11/24 14:32 BP 145/97 03/11/24 14:32 Pulse Ox 98 03/11/24 14:32 O2 Del Method Room Air 03/11/24 13:57 03/10/24 03/11/24 03/11/24 22:59 06:59 14:59 Intake Total 840 / 1566 826 / 826 Output Total 500 / 1525 100 / 1625 1100 / 1100 Balance 340 / 41 -100 / -59 -274 / -274 Weight last 48 hrs Weight 287 lb 8 oz Weight 299 lb 12.8 oz Weight 298 lb Physical Exam 2 Narrative: Alert and oriented x4 No acute distress 3+ edema bilateral lower extremities heart rate normal, irregularly irregular rhyth, no murmurs, s1 s2 normal No s/s of stroke present Lungs right lower lobe diminished left lung fine crackles Data 03/11/24 03:43 03/11/24 03:43 Micro: Microbiology 03/10/24 08:50 Gram Stain - Final Sputum - Expectorated Sputum Sputum Culture - Preliminary 03/09/24 13:20 Blood Culture - Preliminary Blood NEGATIVE TO DATE 03/09/24 12:46 Blood Culture - Preliminary Blood NEGATIVE TO DATE A&P Assessment and plan (1) New onset of congestive heart failure: (2) Atrial fibrillation: Qualifiers: Atrial fibrillation type: unspecified Qualified Code(s): I48.91 - Unspecified atrial fibrillation (3) Morbidly obese: (4) Pleural effusion: (5) Sleep apnea: Qualifiers: Sleep apnea type: unspecified type Qualified Code(s): G47.30 - Sleep apnea, unspecified Plan Patient with clinically evident new onset heart failure and afib rvr. His echo showed normal EF with no wall motion abnormalities. He has risk factors for arrhythmia including obesity, sleep apnea, and previously uncontrolled hypertension. Despite risk factors at some point coronary ischemia will need to be ruled out as cause. He recieved diltiazem 10 mg IV in the ER with improvement of heart rate. Currently on 30 mg q6 hours. Kidney function is good. Patient only about 300 negative. Will increase Lasix from 40 BID to 40 TID. If patient does not have good response to this, may need to add metolazone. Will add coreg 3.125 for heart failure, bp control, and heart rate control. Agree with adding Eliquis 5 mg BID for stroke prevention in the setting of afib. In the future, patient may need stress test to evaluate and help r/o underlying coronary ischemia as cause of new onset afib. Thank you, Dr. Harper, for allowing us to care for this very pleasant 78 year old gentleman. 03/11/2024 As stated above patient is leaving despite us educating him this is not in his best interest. Instructions were given to the patient on medications as well as daily weights low-salt diet. He verbalized full understanding. We will see him in the clinic in 1 week. Attestations 2 Medical Necessity Statement*: Defer to primary Coding Level of Care Code Acute Code for [facility] Fwd Diagnoses New onset of congestive heart failure I50.9 Atrial fibrillation, unspecified type I48.91 Atrial fibrillation type: unspecified Morbidly obese E66.01 Pleural effusion J90 Sleep apnea, unspecified type G47.30 Sleep apnea type: unspecified type
== END 2024-03-11 14:35 | disposition home or self-care (01) | DRG 291 ==
LOC: ER 16:01 → CSU 18:02
PROVIDERS: Internal Medicine; Admitting Provider Student in an Organized Health Care Education/Training Program; Emergency Provider Emergency Medicine; Visit Provider Internal Medicine
DX: I11.0 Hypertensive heart disease with heart failure (principal); I50.33 Acute on chronic diastolic (congestive) heart failure; Z68.41 Body mass index [BMI] 40.0-44.9, adult; I48.91 Unspecified atrial fibrillation; E66.01 Morbid (severe) obesity due to excess calories; G47.30 Sleep apnea, unspecified
CPT/HCPCS: 0241U; 36415; 71045; 71260; 80048; 80053; 83036; 83735; 83880; 84145; 84443; 84484; 85025; 85378; 85610; 87040; 87070; 87205; 93005; 93306; 94762; 96365; 96375; 96376; 99285; G0378; J0456; J0696; J1940; J3490; J7050

== ENCOUNTER → 2024-03-19 15:00 | Outpatient (BNVA) | payer OTHER, MEDICARE, SELFPAY | PROVIDERS: Visit Provider Nurse Practitioner Family | DX: I48.91 Unspecified atrial fibrillation (principal); J18.9 Pneumonia, unspecified organism; Z86.73 Personal history of transient ischemic attack (TIA), and cerebral infarction without residual deficits; I10 Essential (primary) hypertension; Z79.01 Long term (current) use of anticoagulants | CPT/HCPCS: 99214 ==

== ENCOUNTER 2024-05-28 10:49 | Emergency (ER) | payer OTHER, MEDICARE, SELFPAY ==
[2024-05-28 11:02] VITALS: BP 135/79; PULSE 86; RESP 18; TEMP 36.8; O2SAT 97; BMI 35.5
[2024-05-28 11:35] VITALS: BP 105/68; PULSE 76; O2SAT 95
[2024-05-28 12:22] LABS: Urine Appearance Cloudy (CLEAR); Urine Color Red (Yellow)
[2024-05-28 12:23] LABS: Add Urine Culture? Yes; Add Urine Microscopic? YES; Bacteria Urine TRACE /hpf; Hyaline Casts Urine 0-4 /lpf; RBC Urine >100 /hpf (0-2); Squamous Epithelial Cell Urine 0-4 /hpf (0-5); UA Manual Slide Review YES; UA Slide Review UA Slide Review Perf
--- NOTE | 2024-05-28 12:30 | W.ED.MALEGU ---
HPI - Male Genitourinary General: Chief complaint: Urogenital-Male Stated complaint: urinary Time Seen by Provider: 05/28/24 10:59 Source: patient Mode of arrival: ambulatory Limitations: no limitations History of Present Illness: 78-year-old male who states that he self caths he states over the last 2 days been having a really hard time urinating has been having hematuria he does follow-up with urology. He denies any increased pain denies any fever. Associated symptoms: Reports hematuria; Deny nausea or vomiting Related Data Home Medications ?Medication ?Instructions ?Recorded ?Confirmed metolazone 5 mg tablet 5 mg PO DAILY 03/19/24 05/28/24 atorvastatin 40 mg tablet 40 mg PO DAILY 05/28/24 05/28/24 tamsulosin 0.4 mg capsule 0.4 mg PO DAILY 05/28/24 05/28/24 Previous Rx's ?Medication ?Instructions ?Recorded apixaban 5 mg tablet (Eliquis) 5 mg PO BID@0900,2100 #60 tabs 03/11/24 furosemide 40 mg tablet (Lasix) 40 mg PO BID #60 tabs 03/11/24 carvedilol 3.125 mg tablet 3.125 mg PO BID #90 tabs 04/16/24 diltiazem HCl 120 mg 120 mg PO DAILY #90 caps 04/16/24 capsule,extended release 24 hr pantoprazole 40 mg tablet,delayed 40 mg PO DAILY #90 tabs 04/16/24 release (Protonix) potassium chloride 20 mEq 20 meq PO BID #90 tabs 04/17/24 tablet,extended release sulfamethoxazole 800 1 tab PO BID 10 days #20 tabs 05/28/24 mg-trimethoprim 160 mg tablet (Bactrim DS) Allergies Allergy/AdvReac Type Severity Reaction Status Date / Time No Known Allergies Allergy Verified 05/28/24 11:11 Review of Systems Const: Denies: fever(s), chills, body aches or change in appetite ENMT: Denies: throat pain or dental pain Card: Denies: chest pain Resp: Denies: dyspnea GI: Denies: abdominal pain, nausea, vomiting or diarrhea : Reports: difficulty urinating and hematuria Musc: Denies: neck pain or back pain Skin/Breast: Denies: rash Neuro: Denies: headache(s) PFSH ED PFSH: Medical History Pneumonia Morbidly obese New onset of congestive heart failure Pleural effusion Atrial fibrillation No pertinent past medical history Social History Smoking and tobacco/nicotine status: never used tobacco/nicotine Physical Exam Const: COMMON NORMALS: no acute distress, patient oriented x3 and healthy appearing HENMT: COMMON NORMALS: normocephalic and atraumatic HEAD & SCALP: normocephalic and atraumatic Eye: COMMON NORMALS: Equal, round and reactive pupils present and EOMs intact bilaterally PUPIL: Yes Equal, round and reactive pupils present Neck/C-Spine: COMMON NORMALS: full ROM and supple Chest: COMMONS NORMALS: normal inspection of the chest and normal palpation of entire chest wall Resp: COMMON NORMALS: normal respiratory effort, No retractions, No use of accessory muscles and clear to auscultation bilaterally AUSCULTATION: clear to auscultation bilaterally Cardio: COMMON NORMALS: regular rate, regular rhythm and No murmurs present (Cardio) RATE: regular rate RHYTHM: regular rhythm GI: COMMON NORMALS: Normal to inspection, nondistended, normoactive bowel sounds present, Soft to palpation, non-tender and no masses PALPATION: Yes Soft to palpation Extremity: COMMON NORMALS: normal to inspection and full ROM Neuro: COMMON NORMALS: patient oriented x3, moves all extremities and no focal motor deficits Psych: COMMON NORMALS: mental status grossly normal, Normal thought process present and cooperative THOUGHT PROCESS: Normal thought process present Skin: COMMON NORMALS: no rashes or lesions noted and no wounds GENERAL SKIN EXAM: no rashes or lesions noted Course Vital Signs: Vital signs: Vital Signs Temperature 98.3 F 05/28/24 11:02 Pulse Rate 76 05/28/24 11:35 Respiratory Rate 18 05/28/24 11:02 Blood Pressure 105/68 05/28/24 11:35 Pulse Oximetry 95 05/28/24 11:35 Oxygen Delivery Me thod Room Air 05/28/24 11:02 MDM - Male Medical Decision Making Patient presents for urinary tension along with hematuria did place a catheter he is draining well no signs of retention after cath was placed is not passing any clots at this time I did inform he needs to call his urologist [place] follow-up with him we will place him on antibiotics he is return if worsening he understands agrees to plan. Medical Records I reviewed the patient's medical records. Lab Data I reviewed the patient's lab results. 05/28/24 12:44 Laboratory Results WBC 13.41 10^3/uL (3.29-11.43) H 05/28/24 12:44 RBC 3.89 10^6/uL (3.85-5.65) 05/28/24 12:44 Hgb 12.30 g/dL (11.27-16.99) 05/28/24 12:44 Hct 36.7 % (37-53) L 05/28/24 12:44 MCV 94.3 fl (82-101) 05/28/24 12:44 MCH 31.6 pg (27-33) 05/28/24 12:44 MCHC 33.5 g/dL (30-55) 05/28/24 12:44 RDW 14.8 % (12.1-15.1) 05/28/24 12:44 Plt Count 137 10^3/cmm (157-399) L 05/28/24 12:44 MPV 9.8 fL (7.4-10.4) 05/28/24 12:44 Neut % (Auto) 85.1 % 05/28/24 12:44 Lymph % (Auto) 8.0 % 05/28/24 12:44 Coffee % (Auto) 5.7 % 05/28/24 12:44 Eos % (Auto) 0.2 % 05/28/24 12:44 Baso % (Auto) 0.4 % 05/28/24 12:44 Neut # (Auto) 11.41 10^3/uL (1.8-7.7) H 05/28/24 12:44 Lymph # (Auto) 1.1 10^3/uL (0.8-4.8) 05/28/24 12:44 Coffee # (Auto) 0.8 10^3/uL (0.2-0.9) 05/28/24 12:44 Eos # (Auto) 0.0 10^3/uL (0.0-0.8) 05/28/24 12:44 Baso # (Auto) 0.1 10^3/uL (0.0-0.1) 05/28/24 12:44 Nucleated RBC % (auto) 0 % 05/28/24 12:44 Nucleated RBCs # 0.0 /100WBC 05/28/24 12:44 PT 21.50 SECONDS (12.1-14.9) H 05/28/24 12:44 INR 1.75 (0.8-1.2) H 05/28/24 12:44 Urine Color Red (Yellow) A 05/28/24 11:56 Urine Appearance Cloudy (CLEAR) A 05/28/24 11:56 Urine pH TNP 05/28/24 11:56 Ur Specific [place] TNP 05/28/24 11:56 Urine Protein TNP 05/28/24 11:56 Urine Glucose (UA) TNP 05/28/24 11:56 Urine Ketones TNP 05/28/24 11:56 Urine Blood TNP 05/28/24 11:56 Urine Nitrate TNP 05/28/24 11:56 Urine Bilirubin TNP 05/28/24 11:56 Urine Urobilinogen TNP 05/28/24 11:56 Ur Leukocyte Esterase TNP 05/28/24 11:56 Urine RBC >100 /hpf (0-2) H 05/28/24 11:56 Urine WBC 10-15 /hpf (0-5) H 05/28/24 11:56 Ur Squamous Epith Cells 0-4 /hpf (0-5) H 05/28/24 11:56 Amorphous Sediment Not Reportable 05/28/24 11:56 Urine Bacteria Trace /hpf (NONE) 05/28/24 11:56 Hyaline Casts 0-4 /lpf H 05/28/24 11:56 No radiology studies performed this visit Discharge Plan Discharge Patient Disposition: Home Clinical Impression: Hematuria, Acute retention of urine Condition: Stable Prescriptions: New sulfamethoxazole-trimethoprim [Bactrim DS] 800-160 mg tablet 1 tab PO BID 10 Days Qty: 20 0RF No Action metolazone 5 mg tablet 5 mg PO DAILY carvedilol 3.125 mg tablet 3.125 mg PO BID Qty: 90 3RF diltiazem HCl 120 mg capsule,extended release 24hr 120 mg PO DAILY Qty: 90 3RF pantoprazole [Protonix] 40 mg tablet,delayed release (DR/EC) 40 mg PO DAILY Qty: 90 3RF potassium chloride 20 mEq tablet extended release 20 meq PO BID Qty: 90 3RF furosemide [Lasix] 40 mg tablet 40 mg PO BID Qty: 60 0RF Eliquis 5 mg Tablet 5 mg PO BID@0900,2100 Qty: 60 0RF atorvastatin 40 mg tablet 40 mg PO DAILY tamsulosin 0.4 mg capsule 0.4 mg PO DAILY Discharge Orders: Discharge ED (Routine); Ordered 05/28/24 Ordered By: Concepcion Cervantes Discharge Diet: Advance as tolerated Discharge Activity: Resume usual activity Patient Instructions: Hematuria (ED) Print Language: American Coding Level of Care Code ED Finishing Machine Tender for [facility]
--- NOTE | 2024-05-28 12:42 | PC.PHAR ---
Addendum entered by Sudha Justin 05/28/24 12:49: [facility] 05/28/24 12:45am. Pt verified current med list but I faxed for a list for comparison. Original Note: Pt had an appt, at Dr Beard office for 12:45 today. Pt requested me to phone her office and let them know he is here.
[2024-05-28 12:50] LABS: Basophils # 0.1 10^3/uL (0.0-0.1); Basophils % 0.4 %; Eosinophils % 0.2 %; Hematocrit 36.7 % (37-53); Lymphocytes # 1.1 10^3/uL (0.8-4.8); Mean Corpuscular HGB Conc 33.5 g/dL (30-55); Mean Corpuscular Hemoglobin 31.6 pg (27-33); Mean Corpuscular Volume 94.3 fl (82-101); Mean Platelet Volume 9.8 fL (7.4-10.4); Monocytes # 0.8 10^3/uL (0.2-0.9); Monocytes % 5.7 %; Neutrophils # 11.41 10^3/uL (1.8-7.7); Neutrophils % 85.1 %; Nucleated Red Blood Cells % 0 %; Platelet Count 137 10^3/cmm (157-399); Red Blood Count 3.89 10^6/uL (3.85-5.65); Red Cell Distribution Width 14.8 % (12.1-15.1); White Blood Count 13.41 10^3/uL (3.29-11.43)
[2024-05-28 13:04] LABS: INR 1.75 (0.8-1.2)
[2024-05-28 13:18] VITALS: BP 137/88; PULSE 81; O2SAT 98
[2024-05-28 13:20] VITALS: BP 137/88; PULSE 81; O2SAT 98
== END 2024-05-28 14:01 | disposition home or self-care (01) ==
PROVIDERS: Emergency Provider Emergency Medicine
DX: R31.9 Hematuria, unspecified (principal); R33.8 Other retention of urine; Z79.01 Long term (current) use of anticoagulants; I50.9 Heart failure, unspecified; Z79.02 Long term (current) use of antithrombotics/antiplatelets
CPT/HCPCS: 36415; 51702; 81001; 85025; 85610; 87077; 87086; 87186; 99215; 99283

== ENCOUNTER 2024-05-29 05:30 | Emergency (ER) | payer OTHER, MEDICARE, SELFPAY ==
[2024-05-29 05:41] VITALS: BP 122/104; PULSE 88; RESP 18; TEMP 36.5; O2SAT 95; BMI 35.5
[2024-05-29 06:23] LABS: Blood Urea Nitrogen 20 mg/dL (8-23); Calcium 9.2 mg/dL (8.5-10.5); Carbon Dioxide 27 mmol/L (22-29); Chloride 102 mmol/L (98-107); Creatinine Clr Calc Pharmacy 81.2857; Glucose 121 mg/dL (65-115); Osmolality Calculated 292 mOsm/kg (285-295); Sodium 139 mmol/L (136-145)
[2024-05-29 06:24] LABS: Anion Gap 13.9 (5-19); Potassium 3.9 mmol/L (3.5-5.1)
--- NOTE | 2024-05-29 06:28 | W.ED.MALEGU ---
HPI - Male Genitourinary General: Chief complaint: Urogenital-Male Stated complaint: catheter is not filling Time Seen by Provider: 05/29/24 05:33 History of Present Illness: 78-year-old male presents to the emergency room reporting decreased urinary output from his catheter. Patient was seen yesterday had hematuria and had a catheter placed and lying back he is on Eliquis. He has frankly bloody hematuria in the leg bag he states after he got up he began to get more output in the catheter. He denies any fever sweats chills no flank pain Associated symptoms: Reports hematuria; Deny dysuria Related Data Home Medications ?Medication ?Instructions ?Recorded ?Confirmed metolazone 5 mg tablet 5 mg PO DAILY 03/19/24 05/29/24 atorvastatin 40 mg tablet 40 mg PO DAILY 05/28/24 05/29/24 tamsulosin 0.4 mg capsule 0.4 mg PO DAILY 05/28/24 05/29/24 clopidogrel 75 mg tablet 75 mg PO DAILY 05/29/24 05/29/24 Previous Rx's ?Medication ?Instructions ?Recorded apixaban 5 mg tablet (Eliquis) 5 mg PO BID@0900,2100 #60 tabs 03/11/24 Held on 05/29/24. Instructions: Resume on 05/11/24. furosemide 40 mg tablet (Lasix) 40 mg PO BID #60 tabs 03/11/24 carvedilol 3.125 mg tablet 3.125 mg PO BID #90 tabs 04/16/24 diltiazem HCl 120 mg 120 mg PO DAILY #90 caps 04/16/24 capsule,extended release 24 hr pantoprazole 40 mg tablet,delayed 40 mg PO DAILY #90 tabs 04/16/24 release (Protonix) potassium chloride 20 mEq 20 meq PO BID #90 tabs 04/17/24 tablet,extended release sulfamethoxazole 800 1 tab PO BID 10 days #20 tabs 05/28/24 mg-trimethoprim 160 mg tablet (Bactrim DS) Allergies Allergy/AdvReac Type Severity Reaction Status Date / Time No Known Allergies Allergy Verified 05/28/24 15:00 Review of Systems Const: Denies: fever(s) or chills Card: Denies: chest pain Resp: Denies: dyspnea GI: Denies: abdominal pain : Reports: hematuria; Denies: dysuria, urinary frequency or urinary urgency Musc: Denies: neck pain or back pain Skin/Breast: Denies: rash PFSH ED PFSH: Medical History Atrial fibrillation Pneumonia Morbidly obese New onset of congestive heart failure Pleural effusion No pertinent past medical history Social History Smoking and tobacco/nicotine status: never used tobacco/nicotine Physical Exam Const: GENERAL APPEARANCE: cooperative and comfortable ORIENTATION/CONSCIOUSNESS: Yes awake, Yes oriented to person, Yes oriented to place and Yes oriented to time HENMT: COMMON NORMALS: normocephalic, atraumatic and hearing grossly normal bilaterally HEAD & SCALP: normocephalic and atraumatic Resp: COMMON NORMALS: normal respiratory effort, No retractions, No use of accessory muscles and clear to auscultation bilaterally AUSCULTATION: clear to auscultation bilaterally Cardio: COMMON NORMALS: regular rate, regular rhythm and No murmurs present (Cardio) RATE: regular rate RHYTHM: regular rhythm GI: COMMON NORMALS: Soft to palpation and No hepatosplenomegaly present AUSCULTATION: Yes normoactive bowel sounds PALPATION: Yes Soft to palpation, No Tenderness to palpation present (GI), No Guarding due to palpation present (GI) and Yes No hepatosplenomegaly present Extremity: COMMON NORMALS: normal to inspection, capillary refill normal, no clubbing, cyanosis or edema, no calf tenderness and no pedal edema Neuro: SENSORIUM/ORIENTATION: Yes oriented to person, Yes oriented to place and Yes oriented to time Skin: COMMON NORMALS: no rashes or lesions noted GENERAL SKIN EXAM: no rashes or lesions noted Course Vital Signs: Vital signs: Vital Signs Temperature 97.7 F 05/29/24 05:41 Pulse Rate 72 05/29/24 11:08 Respiratory Rate 18 05/29/24 05:41 Blood Pressure 119/63 05/29/24 11:08 Pulse Oximetry 97 05/29/24 11:08 Oxygen Delivery Me thod Room Air 05/29/24 06:45 MDM - Male Medical Decision Making Presents with severe gross hematuria. The catheter was not draining well as always deflated advanced and they will to drain significant amount of urine. It was heavily blood-tinged. Bladder was irrigated to there is a light tinge of blood in the urine. Will discharge the patient home have him hold his Eliquis discussed with him while there is some risk of this since he is having so much blood from the catheter at this time he will need to stop it we need to repeat reevaluate with his current urologist next week return if he has further problems or if the catheter does not drain. Medical Records I reviewed the patient's medical records. Lab Data I reviewed the patient's lab results. 05/29/24 05:28 Laboratory Results Sodium 139 mmol/L (136-145) 05/29/24 05:28 Potassium 3.9 mmol/L (3.5-5.1) 05/29/24 05: Chloride 102 mmol/L (98-107) 05/29/24 05: Carbon Dioxide 27 mmol/L (22-29) 05/29/24 05:28 Anion Gap 13.9 (5-19) 05/29/24 05:28 BUN 20 mg/dL (8-23) 05/29/24 05:28 Creatinine 1.0 mg/dL (0.7-1.2) 05/29/24 05:28 GFR Calculation Not Reportable 05/29/24 05:28 Glucose 121 mg/dL (65-115) H 05/29/24 05:28 Calculated Osmolality 292 mOsm/kg (285-295) 05/29/24 05:28 Calcium 9.2 mg/dL (8.5-10.5) 05/29/24 05:28 Urine Color Red (Yellow) A 05/29/24 07:25 Urine Appearance Turbid (CLEAR) A 05/29/24 07:25 Urine pH TNP 05/29/24 07:25 Ur Specific [place] Not Reportable 05/29/24 07:25 Urine Protein Not Reportable 05/29/24 07:25 Urine Glucose (UA) Not Reportable 05/29/24 07:25 Urine Ketones Not Reportable 05/29/24 07:25 Urine Blood Not Reportable 05/29/24 07:25 Urine Nitrate Not Reportable 05/29/24 07:25 Urine Bilirubin Not Reportable 05/29/24 07:25 Urine Urobilinogen Not Reportable 05/29/24 07:25 Ur Leukocyte Esterase Not Reportable 05/29/24 07:25 Urine RBC Too numerous to cnt /hpf (0-2) H 05/29/24 07:25 Urine WBC Too numerous to cnt /hpf (0-5) H 05/29/24 07:25 Ur Squamous Epith Cells 0-4 /hpf (0-5) H 05/29/24 07:25 Amorphous Sediment Not Reportable 05/29/24 07:25 Urine Bacteria 1+ /hpf (NONE) H 05/29/24 07:25 No radiology studies performed this visit Discharge Plan Discharge Patient Disposition: Home Clinical Impression: Hematuria, Acute retention of urine Condition: Stable Prescriptions: Held Eliquis 5 mg Tablet 5 mg PO BID@0900,2100 Qty: 60 0RF Hold Instructions: Resume on 05/11/24. No Action metolazone 5 mg tablet 5 mg PO DAILY carvedilol 3.125 mg tablet 3.125 mg PO BID Qty: 90 3RF diltiazem HCl 120 mg capsule,extended release 24hr 120 mg PO DAILY Qty: 90 3RF pantoprazole [Protonix] 40 mg tablet,delayed release (DR/EC) 40 mg PO DAILY Qty: 90 3RF potassium chloride 20 mEq tablet extended release 20 meq PO BID Qty: 90 3RF furosemide [Lasix] 40 mg tablet 40 mg PO BID Qty: 60 0RF atorvastatin 40 mg tablet 40 mg PO DAILY tamsulosin 0.4 mg capsule 0.4 mg PO DAILY sulfamethoxazole-trimethoprim [Bactrim DS] 800-160 mg tablet 1 tab PO BID 10 Days Qty: 20 0RF clopidogrel 75 mg tablet 75 mg PO DAILY Discharge Orders: Discharge ED (Routine); Ordered 05/29/24 Ordered By: Bay Chavira Discharge Diet: Usual diet Discharge Activity: Increase activity as tolerated Patient Instructions: Opioid Safety, Pain Management Activity Restrictions/Additional Instructions: Thank you for choosing [facility] for your healthcare needs today. It is very important that you follow up as instructed or that you return to the Emergency Department should you have concerns or if your condition changes or worsens in any way. You were seen in the emergency room with complications of your catheter that was placed yesterday. When he first arrived there is a large amount of blood in the urine. Catheter was repositioned and the bladder irrigated out. We were able to get the tatyana blood to stop his blood-tinged urine after the irrigation. Recommend holding Eliquis for at least 10 days. Follow-up with your urologist. Continue the antibiotics you are prescribed earlier this week. Print Language: Lithuanian Coding Level of Care Code ED Manager Molecular for [facility]
[2024-05-29 06:45] VITALS: PULSE 74; O2SAT 93
--- NOTE | 2024-05-29 07:33 | PC.NURSE ---
previous shift nurse irrigated bladder until clear output, no clots. pt's leg bag reapplied.
[2024-05-29 07:36] LABS: Add Urine Microscopic? NO
--- NOTE | 2024-05-29 07:53 | PC.PHAR ---
[facility] 7:40am
[2024-05-29 08:07] LABS: RBC Urine TOO NUMEROUS TO CNT /hpf (0-2); Squamous Epithelial Cell Urine 0-4 /hpf (0-5); UA Manual Slide Review YES; Urine Appearance Turbid (CLEAR); Urine Color Red (Yellow); WBC Urine TOO NUMEROUS TO CNT /hpf (0-5)
[2024-05-29 08:08] LABS: Bacteria Urine 1+ /hpf
[2024-05-29 08:09] LABS: Charge for UA Resulting for Rev
[2024-05-29 08:45] VITALS: O2SAT 95
[2024-05-29 11:08] VITALS: BP 119/63; PULSE 72; O2SAT 97
== END 2024-05-29 11:18 | disposition home or self-care (01) ==
PROVIDERS: Emergency Provider Family Medicine
DX: R31.9 Hematuria, unspecified (principal); R33.9 Retention of urine, unspecified; Z79.02 Long term (current) use of antithrombotics/antiplatelets; I50.9 Heart failure, unspecified; Z79.01 Long term (current) use of anticoagulants
CPT/HCPCS: 36415; 51798; 80048; 81003; 99283

== ENCOUNTER → 2024-06-04 08:55 | Outpatient (BNVA) | payer OTHER, SELFPAY | PROVIDERS: PCP Nurse Practitioner; Visit Provider Nurse Practitioner Family | DX: I50.30 Unspecified diastolic (congestive) heart failure (principal); I48.91 Unspecified atrial fibrillation; Z79.01 Long term (current) use of anticoagulants | CPT/HCPCS: 36415; 83880; 99213 ==

== ENCOUNTER 2024-06-05 07:28 | Emergency (ER) | payer OTHER, SELFPAY ==
[2024-06-05 07:40] VITALS: BP 117/81; PULSE 80; RESP 16; TEMP 36.4; O2SAT 98; BMI 34.2
--- NOTE | 2024-06-05 08:00 | W.ED.MALEGU ---
HPI - Male Genitourinary General: Chief complaint: Urogenital-Male Stated complaint: have cath causing discomfort Time Seen by Provider: 06/05/24 07:40 History of Present Illness: 78-year-old male presents to the emergency room with complaint of discomfort from his catheter. Patient is urinary retention and had a catheter placed little over a week ago we seen him exactly 1 week ago in the ER and he was having hematuria at that time. We stopped his Eliquis after flushing his catheter he has not had any further blood since. He is currently on tamsulosin alone. Today he is complaining of discomfort from the catheter traction and pulling causing discomfort at the head of the penis. Associated symptoms: Deny hematuria Related Data Home Medications ?Medication ?Instructions ?Recorded ?Confirmed atorvastatin 40 mg tablet 40 mg PO DAILY 05/28/24 06/05/24 tamsulosin 0.4 mg capsule 0.4 mg PO DAILY 05/28/24 06/05/24 clopidogrel 75 mg tablet 75 mg PO DAILY 05/29/24 06/05/24 Previous Rx's ?Medication ?Instructions ?Recorded apixaban 5 mg tablet (Eliquis) 5 mg PO BID@0900,2100 #60 tabs 03/11/24 furosemide 40 mg tablet (Lasix) 40 mg PO BID #60 tabs 03/11/24 carvedilol 3.125 mg tablet 3.125 mg PO BID #90 tabs 04/16/24 diltiazem HCl 120 mg 120 mg PO DAILY #90 caps 04/16/24 capsule,extended release 24 hr potassium chloride 20 mEq 20 meq PO BID #90 tabs 04/17/24 tablet,extended release sulfamethoxazole 800 1 tab PO BID 10 days #20 tabs 05/28/24 mg-trimethoprim 160 mg tablet (Bactrim DS) lidocaine 4 % topical cream 1 applic topical TID PRN pain #25 06/05/24 grams Allergies Allergy/AdvReac Type Severity Reaction Status Date / Time No Known Allergies Allergy Verified 06/04/24 09:11 Review of Systems Const: Denies: fever(s) or chills Card: Denies: chest pain Resp: Denies: dyspnea GI: Denies: abdominal pain : Denies: hematuria Musc: Denies: neck pain or back pain Skin/Breast: Denies: rash PFSH ED PFSH: Medical History Atrial fibrillation Pneumonia Morbidly obese New onset of congestive heart failure Pleural effusion No pertinent past medical history Social History Smoking and tobacco/nicotine status: never used tobacco/nicotine Physical Exam Const: GENERAL APPEARANCE: cooperative ORIENTATION/CONSCIOUSNESS: Yes awake, Yes oriented to person, Yes oriented to place and Yes oriented to time HENMT: COMMON NORMALS: normocephalic, atraumatic and hearing grossly normal bilaterally HEAD & SCALP: normocephalic and atraumatic Resp: COMMON NORMALS: normal respiratory effort, No retractions, No use of accessory muscles and clear to auscultation bilaterally AUSCULTATION: clear to auscultation bilaterally Cardio: COMMON NORMALS: regular rate, regular rhythm and No murmurs present (Cardio) RATE: regular rate RHYTHM: regular rhythm GI: COMMON NORMALS: Soft to palpation and No hepatosplenomegaly present AUSCULTATION: Yes normoactive bowel sounds PALPATION: Yes Soft to palpation, No Tenderness to palpation present (GI), No Guarding due to palpation present (GI) and Yes No hepatosplenomegaly present Extremity: COMMON NORMALS: normal to inspection, capillary refill normal, no clubbing, cyanosis or edema, no calf tenderness and no pedal edema Neuro: SENSORIUM/ORIENTATION: Yes oriented to person, Yes oriented to place and Yes oriented to time Skin: COMMON NORMALS: no rashes or lesions noted GENERAL SKIN EXAM: no rashes or lesions noted Course Vital Signs: Vital signs: Vital Signs Temperature 97.6 F 06/05/24 07:40 Pulse Rate 80 06/05/24 07:40 Respiratory Rate 16 06/05/24 07:40 Blood Pressure 117/81 06/05/24 07:40 Pulse Oximetry 98 06/05/24 07:40 Oxygen Delivery Me thod Room Air 06/05/24 07:40 MDM - Male Medical Decision Making Patient is having discomfort at the catheter site there is no skin breakdown is meatus. His catheter bag is positional low in his leg and is creating traction as he moves. Nursing staff resecured the bag showed him how to resecure more proximally on his leg to prevent traction against the head of the penis. Also gave him lidocaine to use topically as needed. Patient has not had any further blood he is concerned about his Eliquis at this point he has been off of it for a week has not had further bleeding and think he can resume it due to his A-fib. Medical Records I reviewed the patient's medical records. No radiology studies performed this visit Discharge Plan Discharge Patient Disposition: Home Clinical Impression: Complication of Flores catheter Condition: Stable Prescriptions: New lidocaine 4 % cream 1 applic topical TID PRN (Reason: pain) Qty: 25 0RF No Action carvedilol 3.125 mg tablet 3.125 mg PO BID Qty: 90 3RF diltiazem HCl 120 mg capsule,extended release 24hr 120 mg PO DAILY Qty: 90 3RF potassium chloride 20 mEq tablet extended release 20 meq PO BID Qty: 90 3RF furosemide [Lasix] 40 mg tablet 40 mg PO BID Qty: 60 0RF Eliquis 5 mg Tablet 5 mg PO BID@0900,2100 Qty: 60 0RF atorvastatin 40 mg tablet 40 mg PO DAILY tamsulosin 0.4 mg capsule 0.4 mg PO DAILY sulfamethoxazole-trimethoprim [Bactrim DS] 800-160 mg tablet 1 tab PO BID 10 Days Qty: 20 0RF clopidogrel 75 mg tablet 75 mg PO DAILY Discharge Orders: Discharge ED (Routine); Ordered 06/05/24 Ordered By: Bay Chavira Referrals: Ramonita Pickard FNP [Primary Care Provider] - Discharge Diet: Usual diet Discharge Activity: Resume usual activity Patient Instructions: Opioid Safety, Pain Management Activity Restrictions/Additional Instructions: Thank you for choosing [facility] for your healthcare needs today. It is very important that you follow up as instructed or that you return to the Emergency Department should you have concerns or if your condition changes or worsens in any way. You were seen in the emergency room for complications of your Flores catheter. Catheter need to be repositioned on your leg. Nursing staff showed you the proper way to secure it. You are also given topical lidocaine to apply to the tip of the penis to cut down on discomfort follow-up with urology as planned Print Language: Lithuanian Coding Level of Care Code ED Yoghurt Maker for Kp Garcia
[2024-06-05 10:34] VITALS: BP 135/78; PULSE 71; O2SAT 94
== END 2024-06-05 10:20 | disposition home or self-care (01) ==
PROVIDERS: Emergency Provider Family Medicine; PCP Nurse Practitioner
DX: T83.091A Other mechanical complication of indwelling urethral catheter, initial encounter (principal); Z79.01 Long term (current) use of anticoagulants; Z79.02 Long term (current) use of antithrombotics/antiplatelets; X58.XXXA Exposure to other specified factors, initial encounter
CPT/HCPCS: 99282

== ENCOUNTER 2024-06-08 08:47 | Emergency (ER) | payer OTHER, SELFPAY ==
[2024-06-08 08:56] VITALS: BP 140/78; PULSE 92; RESP 16; TEMP 36.8; O2SAT 100; BMI 34.2
--- NOTE | 2024-06-08 09:16 | ED_ITS ---
HPI - Male Genitourinary General: Chief complaint: Urogenital-Male Stated complaint: cath problems Time Seen by Provider: 06/08/24 09:00 Source: patient Mode of arrival: ambulatory Limitations: no limitations History of Present Illness: Patient is a 78-year-old male here with concerns that his Richardson catheter is not draining-noticed this morning. Patient states he was doing self catheterizations since a stroke that he suffered back in March. He states he had been working with his urologist in [place] and had been decreasing the need for self-catheterization and states he was down to one a day last month. He states during an episode of self-catheterization he feels like he injured his urethra as he began noticing a large amount of blood which then caused obstruction/urinary retention. He was initially seen here in the emergency department on 05/28 for acute urinary retention and had a Richardson catheter placed. He was seen the day after with large amounts of hematuria in his leg bag. His Eliquis was discontinued at this visit. He was seen on 06/04 by cardiology and I believe they had resumed his Eliquis on this visit. He was seen here in the emergency department again on 06/05 for complaints that his Richardson catheter was tugging . Patient states at this point he has not had any blood in his urine in over 10 days. He would like his catheter removed. He has follow-up with his urologist in 2 days. He does have self-catheterization supplies at home. Complaint: other (richardson catheter not draining) Onset (ago): hour(s) Associated symptoms: Reports no associated symptoms; Deny hematuria, nausea or vomiting Related Data Home Medications ?Medication ?Instructions ?Recorded ?Confirmed atorvastatin 40 mg tablet 40 mg PO DAILY 05/28/2405/30 tamsulosin 0.4 mg capsule 0.4 mg PO DAILY 05/28/2401/23 clopidogrel 75 mg tablet 75 mg PO DAILY 05/29/2405/30 Previous Rx's ?Medication ?Instructions ?Recorded apixaban 5 mg tablet (Eliquis) 5 mg PO BID@0900,2100 # 60 tabs 03/11/24 furosemide 40 mg tablet (Lasix) 40 mg PO BID #60 tabs 03/11/24 carvedilol 3.125 mg tablet 3.125 mg PO BID #90 tabs diltiazem HCl 120 mg 120 mg PO DAILY #90 caps capsule,extended release 24 hr potassium chloride 20 mEq 20 meq PO BID #90 tabs 04/17 tablet,extended release lidocaine 4 % topical cream 1 applic topical TID PRN p ain #25 06/05/24 grams Allergies Allergy/AdvReac Type Severity Reaction Status Date / Time No Known Allergies Allergy Verified 06/04/24 09:11 Review of Systems Const: Denies: fever(s), chills, body aches, fatigue or malaise Card: Denies: chest pain Resp: Denies: dyspnea GI: Denies: abdominal pain, nausea, vomiting or change in bowel habits : Reports: other (richardson catheter not draining); Denies: flank pain or hematuria Musc: Denies: back pain PFSH ED PFSH: Medical History Atrial fibrillation Pneumonia Morbidly obese New onset of congestive heart failure Pleural effusion No pertinent past medical history Social History Smoking and tobacco/nicotine status: never used tobacco/nicotine Physical Exam Const: COMMON NORMALS: no acute distress, average body habitus, patient oriented x3, no limitations, alert and well nourished GENERAL APPEARANCE: cooperative GI: PALPATION: Yes Tenderness to palpation present (GI) (mild suprapubic discomfort), No Guarding due to palpation present (GI) and No Rigid due to palpation : COMMON NORMALS: Yes no CVA tenderness BLADDER/KIDNEY EXAM: Yes no CVA tenderness OTHER: richardson in place with a small amount of yellow urine in leg bag; no heavy sediment or blood Back/Pelvis: COMMON NORMALS: no CVA tenderness Neuro: COMMON NORMALS: patient oriented x3 SENSORIUM/ORIENTATION: Yes alert Course Vital Signs: Vital signs: Vital Signs Temperature 98.3 F 06/08/24 08:56 Pulse Rate 85 06/08/24 10:29 Respiratory Rate 16 06/08/24 08:56 Blood Pressure 117/72 06/08/24 10:29 Pulse Oximetry 96 06/08/24 10:29 Oxygen Delivery Me thod Room Air 06/08/24 08:56 [facility] - Male Medical Decision Making Patient is a nice 78-year-old male here stating his Richardson catheter is not draining. He initially had this catheter placed on 05/28 after an episode of acute urinary retention related to hematuria following self-catheterization (was doing this following a stroke but had weaned himself down to just one a day in May). Patient has not had any hematuria in approximately 10 days. He would like Richardson catheter removed at this time. He states he has follow-up with his urologist in 2 days. He states he would like to get back to urinating on his own and does have self-catheterization supplies at home if needed. We did bladder scan here prior to richardson removal and over 800ml urine seen. Richardson will be removed at patient request. He was able to then void over 500ml on his own and continuing to void small amounts at time of discharge. Return precautions discussed. Medical Records I reviewed the patient's medical records. No radiology studies performed this visit Discharge Plan Discharge Patient Disposition: Home Clinical Impression: Richardson catheter problem Qualifiers: Encounter type: initial encounter Qualified Code(s): T83.9XXA - Unspecified complication of genitourinary prosthetic device, implant and graft, initial encounter Condition: Stable Prescriptions: No Action carvedilol 3.125 mg tablet 3.125 mg PO BID Qty: 90 3RF diltiazem HCl 120 mg capsule,extended release 24hr 120 mg PO DAILY Qty: 90 3RF potassium chloride 20 mEq tablet extended release 20 meq PO BID Qty: 90 3RF furosemide [Lasix] 40 mg tablet 40 mg PO BID Qty: 60 0RF Eliquis 5 mg Tablet 5 mg PO BID@0900,2100 Qty: 60 0RF atorvastatin 40 mg tablet 40 mg PO DAILY tamsulosin 0.4 mg capsule 0.4 mg PO DAILY clopidogrel 75 mg tablet 75 mg PO DAILY lidocaine 4 % cream 1 applic topical TID PRN (Reason: pain) Qty: 25 0RF Discharge Orders: Discharge ED (Routine); Ordered 06/08/24 Ordered By: Cheryl Barrios Referrals: Ramonita Pickard, VENEER PRESS OPERATOR [Primary Care Provider] - Activity Restrictions/Additional Instructions: As we discussed, you are requesting that we remove your Richardson catheter today. This has been completed. You do have soft catheterization supplies at home if needed. Please follow-up with your urologist on Wednesday as scheduled. Print Language: Serbian Coding Level of Care Code ED Distance Education Director for Kp Garcia
--- NOTE | 2024-06-08 09:19 | PC.NURSE ---
826 ML IN BLADDER PER SCANNER.
[2024-06-08 10:29] VITALS: BP 117/72; PULSE 85; O2SAT 96
== END 2024-06-08 10:31 | disposition home or self-care (01) ==
PROVIDERS: Emergency Provider Physician Assistant; PCP Nurse Practitioner
DX: T83.9XXA Unspecified complication of genitourinary prosthetic device, implant and graft, initial encounter (principal); X58.XXXA Exposure to other specified factors, initial encounter; Z79.01 Long term (current) use of anticoagulants; I50.9 Heart failure, unspecified
CPT/HCPCS: 51798; 99283

== ENCOUNTER 2024-08-30 08:17 | Emergency (ER) | payer OTHER, MEDICARE, SELFPAY ==
[2024-08-30 08:28] VITALS: BP 128/87; PULSE 82; RESP 16; TEMP 36.7; O2SAT 100; BMI 35.2
--- NOTE | 2024-08-30 08:33 | ED_ITS ---
HPI - Male Genitourinary 2 General: Chief complaint: Urogenital-Male Stated complaint: blood in urine Time Seen by Provider: 08/30/24 08:21 History of Present Illness: 79-year-old male presents emergency room complaining of gross hematuria. Patient was seen for UTI and started on Bactrim 5 days ago. His UTI symptoms have improved but now he is noting blood in the urine. For a time after his stroke patient was self cathing but he is no longer doing that. He is on Eliquis for atrial fibrillation. He denies any dysuria urgency or frequency Associated symptoms: Reports hematuria; Deny dysuria Related Data Home Medications ?Medication ?Instructions ?Recorded ?Confirmed atorvastatin 40 mg tablet 40 mg PO DAILY 05/28/2405/30 tamsulosin 0.4 mg capsule 0.4 mg PO DAILY 05/28/2401/23 clopidogrel 75 mg tablet 75 mg PO DAILY 05/29/2405/30 Previous Rx's ?Medication ?Instructions ?Recorded apixaban 5 mg tablet (Eliquis) 5 mg PO BID@0900,2100 # 60 tabs 03/11/24 furosemide 40 mg tablet (Lasix) 40 mg PO BID #60 tabs 03/11/24 carvedilol 3.125 mg tablet 3.125 mg PO BID #90 tabs diltiazem HCl 120 mg 120 mg PO DAILY #90 caps capsule,extended release 24 hr potassium chloride 20 mEq 20 meq PO BID #90 tabs 04/17 tablet,extended release lidocaine 4 % topical cream 1 applic topical TID PRN p ain #25 06/05/24 grams ciprofloxacin HCl 500 mg tablet 500 mg PO BID #14 tabs 08/30/24 Allergies Allergy/AdvReac Type Severity Reaction Status Date / Time No Known Allergies Allergy Verified 06/04/24 09:11 Review of Systems 2 Const: Denies: fever(s) or chills Card: Denies: chest pain Resp: Denies: dyspnea GI: Denies: abdominal pain : Reports: hematuria; Denies: dysuria, urinary frequency or urinary urgency Musc: Denies: neck pain or back pain Skin/Breast: Denies: rash PFSH ED 2 PFSH: Medical History Atrial fibrillation Pneumonia Morbidly obese New onset of congestive heart failure Pleural effusion No pertinent past medical history Social History Smoking and tobacco/nicotine status: never used tobacco/nicotine Physical Exam 2 Const: COMMON NORMALS: no acute distress GENERAL APPEARANCE: cooperative and comfortable ORIENTATION/CONSCIOUSNESS: Yes awake, Yes oriented to person, Yes oriented to place and Yes oriented to time HENMT: COMMON NORMALS: normocephalic, atraumatic and hearing grossly normal bilaterally HEAD & SCALP: normocephalic and atraumatic Resp: COMMON NORMALS: normal respiratory effort, No retractions, No use of accessory muscles and clear to auscultation bilaterally AUSCULTATION: clear to auscultation bilaterally Cardio: COMMON NORMALS: regular rate, regular rhythm and No murmurs present (Cardio) RATE: regular rate RHYTHM: regular rhythm GI: COMMON NORMALS: Soft to palpation and No hepatosplenomegaly present A USCULTATION: Yes normoactive bowel sounds PALPATION: Yes Soft to palpation, No Tenderness to palpation present (GI), No Guarding due to palpation present (GI) and Yes No hepatosplenomegaly present : COMMON NORMALS: Yes no CVA tenderness BLADDER/KIDNEY EXAM: Yes no CVA tenderness Back/Pelvis: COMMON NORMALS: no CVA tenderness Extremity: COMMON NORMALS: normal to inspection, capillary refill normal, no clubbing, cyanosis or edema, no calf tenderness and no pedal edema Neuro: SENSORIUM/ORIENTATION: Yes oriented to person, Yes oriented to place and Yes oriented to time Skin: COMMON NORMALS: no rashes or lesions noted GENERAL SKIN EXAM: no rashes or lesions noted Course 2 Vital Signs: Vital signs: Vital Signs Temperature 98.1 F 08/30/24 08:28 Pulse Rate 82 08/30/24 08:28 Respiratory Rate 16 08/30/24 08:28 Blood Pressure 128/87 08/30/24 08:28 Pulse Oximetry 96 08/30/24 08:59 Oxygen Delivery Me thod Room Air 08/30/24 08:59 MDM - Male Medical Decision Making Patient still has UTI despite being on 5 days of Bactrim. He has some urinary retention as well we advised patient to have Flores placed he declines and instead will begin self cathing again he has been self cathing due to neurogenic bladder that began after his stroke. Will put him on ciprofloxacin 500 twice daily for 7 days have him follow-up with his doctor return if he has further problems. Patient also had significant hematuria in the UA we will have him hold his Eliquis for 3 days. Lab Data 08/30/24 08:37 08/30/24 08:37 Laboratory Results WBC 7.29 10^3/uL (3.29-11.43) 08/30/24 08:37 RBC 4.03 10^6/uL (3.85-5.65) 08/30/24 08:37 Hgb 12.40 g/dL (11.27-16.99) 08/30/24 08:37 Hct 38.2 % (37-53) 08/30/24 08:37 MCV 94.8 fl (82-101) 08/30/24 08:37 MCH 30.8 pg (27-33) 08/30/24 08:37 MCHC 32.5 g/dL (30-55) 08/30/24 08:37 RDW 13.5 % (12.1-15.1) 08/30/24 08:37 Plt Count 180 10^3/cmm (157-399) 08/30/24 08:37 MPV 8.9 fL (7.4-10.4) 08/30/24 08:37 Neut % (Auto) 74.3 % 08/30/24 08:37 Lymph % (Auto) 14.5 % 08/30/24 08:37 [place] % (Auto) 8.4 % 08/30/24 08:37 Eos % (Auto) 1.4 % 08/30/24 08:37 Baso % (Auto) 1.0 % 08/30/24 08:37 Neut # (Auto) 5.42 10^3/uL (1.8-7.7) 08/30/24 08:37 Lymph # (Auto) 1.1 10^3/uL (0.8-4.8) 08/30/24 08:37 [place] # (Auto) 0.6 10^3/uL (0.2-0.9) 08/30/24 08:37 Eos # (Auto) 0.1 10^3/uL (0.0-0.8) 08/30/24 08:37 Baso # (Auto) 0.1 10^3/uL (0.0-0.1) 08/30/24 08:37 Nucleated RBC % (auto) 0 % 08/30/24 08:37 Nucleated RBCs # 0.0 /100WBC 08/30/24 08:37 Sodium 135 mmol/L (136-145) L 08/30/24 08:37 Potassium 3.9 mmol/L (3.5-5.1) 08/30/24 08:37 Chloride 98 mmol/L (98-107) 08/30/24 08:37 Carbon Dioxide 22 mmol/L (22-29) 08/30/24 08:37 Anion Gap 18.9 (5-19) 08/30/24 08:37 BUN 22 mg/dL (8-23) 08/30/24 08:37 Creatinine 1.4 mg/dL (0.7-1.2) H 08/30/24 08:37 GFR Calculation Not Reportable 08/30/24 08:37 Glucose 99 mg/dL (65-115) 08/30/24 08:37 Calculated Osmolality 283 mOsm/kg (285-295) L 08/30/24 08:37 Calcium 9.2 mg/dL (8.5-10.5) 08/30/24 08:37 Total Bilirubin 0.9 mg/dL (0.15-1.2) 08/30/24 08:37 AST 31 U/L (0-40) 08/30/24 08:37 ALT 15 U/L (0-41) 08/30/24 08:37 Alkaline Phosphatase 132 U/L (40-130) H 08/30/24 08:37 Total Protein 7.4 g/dL (6.6-8.7) 08/30/24 08:37 Albumin 4.0 g/dL (3.5-5.2) 08/30/24 08:37 Globulin 3.4 g/dL (1.3-4.6) 08/30/24 08:37 Urine Color [place] (Yellow) A 08/30/24 06:11 Urine Appearance Turbid (CLEAR) A 08/30/24 06:11 Urine pH 5.5 (5-7) 08/30/24 06:11 Ur Specific [place] 1.011 (1.005-1.030) 08/30/24 06:11 Urine Protein 2+ (Negative) A 08/30/24 06:11 Urine Glucose (UA) Negative (Normal) 08/30/24 06:11 Urine Ketones Negative (Negative) 08/30/24 06:11 Urine Blood 3+ (Negative) A 08/30/24 06:11 Urine Nitrate Negative (Negative) 08/30/24 06:11 Urine Bilirubin Negative (Negative) 08/30/24 06:11 Urine Urobilinogen 1.0 mg/dL (Negative) 08/30/24 06:11 Ur Leukocyte Esterase 3+ (Negative) A 08/30/24 06:11 Urine RBC >100 /hpf (0-2) H 08/30/24 06:11 Urine WBC >100 /hpf (0-5) H 08/30/24 06:11 Ur Squamous Epith Cells 0-5 /hpf (0-5) 08/30/24 06:11 Amorphous Sediment Not Reportable 08/30/24 06:11 Urine Bacteria None seen /hpf (NONE) 08/30/24 06:11 Hyaline Casts 2.05 /lpf 08/30/24 06:11 No radiology studies performed this visit Discharge Plan Discharge Patient Disposition: Home Clinical Impression: Urinary tract infection, Neurogenic bladder, Medication side effect Condition: Stable Prescriptions: New ciprofloxacin HCl 500 mg tablet 500 mg PO BID Qty: 14 0RF No Action carvedilol 3.125 mg tablet 3.125 mg PO BID Qty: 90 3RF diltiazem HCl 120 mg capsule,extended release 24hr 120 mg PO DAILY Qty: 90 3RF potassium chloride 20 mEq tablet extended release 20 meq PO BID Qty: 90 3RF furosemide [Lasix] 40 mg tablet 40 mg PO BID Qty: 60 0RF Eliquis 5 mg Tablet 5 mg PO BID@0900,2100 Qty: 60 0RF atorvastatin 40 mg tablet 40 mg PO DAILY tamsulosin 0.4 mg capsule 0.4 mg PO DAILY clopidogrel 75 mg tablet 75 mg PO DAILY lidocaine 4 % cream 1 applic topical TID PRN (Reason: pain) Qty: 25 0RF Discharge Orders: Discharge ED (Routine); Ordered 08/30/24 Ordered By: Bay Chavira Referrals: Ramonita Pickard, FORKLIFT DRIVER [Primary Care Provider, Nurse Practitioner] Discharge Diet: Usual diet Discharge Activity: Resume usual activity Patient Instructions: Opioid Safety, Pain Management Activity Restrictions/Additional Instructions: Thank you for choosing [facility] for your healthcare needs today. It is very important that you follow up as instructed or that you return to the Emergency Department should you have concerns or if your condition changes or worsens in any way. You are seen in the emergency room with complaints of blood in your urine. You have signs of a bladder infection which is likely precipitating the bleeding in conjunction with your Eliquis. You did have significant amount of retained urine after voiding you declined the catheter that we recommended you should self cath again regularly follow-up with your primary care doctor within 7 to 10 days Print Language: Kiswahili Coding Level of Care Code ED Parts Cataloger for Kp Garcia
[2024-08-30 08:43] LABS: Basophils # 0.1 10^3/uL (0.0-0.1); Eosinophils # 0.1 10^3/uL (0.0-0.8); Eosinophils % 1.4 %; Hematocrit 38.2 % (37-53); Lymphocytes # 1.1 10^3/uL (0.8-4.8); Lymphocytes % 14.5 %; Mean Corpuscular HGB Conc 32.5 g/dL (30-55); Mean Corpuscular Hemoglobin 30.8 pg (27-33); Mean Corpuscular Volume 94.8 fl (82-101); Mean Platelet Volume 8.9 fL (7.4-10.4); Monocytes # 0.6 10^3/uL (0.2-0.9); Monocytes % 8.4 %; Neutrophils # 5.42 10^3/uL (1.8-7.7); Neutrophils % 74.3 %; Nucleated Red Blood Cells % 0 %; Platelet Count 180 10^3/cmm (157-399); Red Blood Count 4.03 10^6/uL (3.85-5.65); Red Cell Distribution Width 13.5 % (12.1-15.1); White Blood Count 7.29 10^3/uL (3.29-11.43)
[2024-08-30 08:59] VITALS: O2SAT 96
[2024-08-30 08:59] LABS: Add Urine Microscopic? YES; Bacteria Urine None Seen /hpf; Bilirubin Urine Negative (Negative); Blood Urine 3+ (Negative); Glucose Urine UA Negative (Normal); Hyaline Casts Urine 2.05 /lpf; Ketones Urine Negative (Negative); Leukocyte Esterase Urine 3+ (Negative); Nitrate Urine Negative (Negative); Protein Urine 2+ (Negative); RBC Urine >100 /hpf (0-2); Specific Gravity, Urine 1.011 (1.005-1.030); Squamous Epithelial Cell Urine 0-5 /hpf (0-5); Urine Appearance Turbid (CLEAR); WBC Urine >100 /hpf (0-5); pH Urine 5.5 (5-7)
[2024-08-30 08:59] LABS: Alanine Aminotransferase 15 U/L (0-41); Alkaline Phosphatase 132 U/L (40-130); Anion Gap 18.9 (5-19); Aspartate Amino Transferase 31 U/L (0-40); Blood Urea Nitrogen 22 mg/dL (8-23); Calcium 9.2 mg/dL (8.5-10.5); Carbon Dioxide 22 mmol/L (22-29); Chloride 98 mmol/L (98-107); Creatinine Clr Calc Pharmacy 56.9273; Globulin 3.4 g/dL (1.3-4.6); Glucose 99 mg/dL (65-115); Osmolality Calculated 283 mOsm/kg (285-295); Potassium 3.9 mmol/L (3.5-5.1); Sodium 135 mmol/L (136-145); Total Bilirubin 0.9 mg/dL (0.15-1.2); Total Protein 7.4 g/dL (6.6-8.7)
[2024-08-30 09:00] LABS: Add Urine Culture? Yes; Urine Color Orange (Yellow)
[2024-08-30 10:19] VITALS: BP 131/72; PULSE 73; O2SAT 95
== END 2024-08-30 10:20 | disposition home or self-care (01) ==
PROVIDERS: Emergency Provider Family Medicine; PCP Nurse Practitioner
DX: N39.0 Urinary tract infection, site not specified (principal); N31.9 Neuromuscular dysfunction of bladder, unspecified; T50.905A Adverse effect of unspecified drugs, medicaments and biological substances, initial encounter; X58.XXXA Exposure to other specified factors, initial encounter; Z79.01 Long term (current) use of anticoagulants; Z79.02 Long term (current) use of antithrombotics/antiplatelets; I50.9 Heart failure, unspecified
CPT/HCPCS: 51798; 80053; 81001; 85025; 87086; 99283

== ENCOUNTER → 2024-09-07 12:13 | Outpatient (BNVA) | payer OTHER, SELFPAY | PROVIDERS: PCP Nurse Practitioner; Visit Provider Internal Medicine Cardiovascular Disease | DX: I50.33 Acute on chronic diastolic (congestive) heart failure (principal); I48.91 Unspecified atrial fibrillation; Z79.01 Long term (current) use of anticoagulants; R22.43 Localized swelling, mass and lump, lower limb, bilateral; G93.2 Benign intracranial hypertension; E78.5 Hyperlipidemia, unspecified; Z86.73 Personal history of transient ischemic attack (TIA), and cerebral infarction without residual deficits | CPT/HCPCS: 99214 ==

== ENCOUNTER → 2025-02-17 12:55 | Outpatient (BNVA) | payer OTHER, SELFPAY | PROVIDERS: PCP Nurse Practitioner; Visit Provider Thoracic Surgery (Cardiothoracic Vascular Surgery) | DX: I87.2 Venous insufficiency (chronic) (peripheral) (principal); L97.811 Non-pressure chronic ulcer of other part of right lower leg limited to breakdown of skin | CPT/HCPCS: 97597; 99213 ==

== ENCOUNTER → 2025-02-22 10:27 | Outpatient (BNVA) | payer OTHER, SELFPAY | PROVIDERS: PCP Nurse Practitioner; Visit Provider Thoracic Surgery (Cardiothoracic Vascular Surgery) | DX: I87.2 Venous insufficiency (chronic) (peripheral) (principal); L97.821 Non-pressure chronic ulcer of other part of left lower leg limited to breakdown of skin; L03.116 Cellulitis of left lower limb | CPT/HCPCS: 97597; A6252 ==

== ENCOUNTER → 2025-02-24 10:33 | Outpatient (BNVA) | payer OTHER, SELFPAY | PROVIDERS: PCP Nurse Practitioner; Visit Provider Thoracic Surgery (Cardiothoracic Vascular Surgery) | DX: I87.2 Venous insufficiency (chronic) (peripheral) (principal); L97.811 Non-pressure chronic ulcer of other part of right lower leg limited to breakdown of skin | CPT/HCPCS: 29581; 99211 ==

== ENCOUNTER → 2025-03-03 13:38 | Outpatient (BNVA) | payer OTHER, SELFPAY | PROVIDERS: PCP Nurse Practitioner; Visit Provider Thoracic Surgery (Cardiothoracic Vascular Surgery) | DX: I96 Gangrene, not elsewhere classified (principal); I87.2 Venous insufficiency (chronic) (peripheral); L97.811 Non-pressure chronic ulcer of other part of right lower leg limited to breakdown of skin; L97.821 Non-pressure chronic ulcer of other part of left lower leg limited to breakdown of skin; L03.116 Cellulitis of left lower limb | CPT/HCPCS: 97597 ==

== ENCOUNTER → 2025-03-08 14:54 | Outpatient (BNVA) | payer OTHER, SELFPAY | PROVIDERS: PCP Family Medicine Geriatric Medicine; Visit Provider Internal Medicine Cardiovascular Disease | DX: I48.91 Unspecified atrial fibrillation (principal); I10 Essential (primary) hypertension; R60.0 Localized edema; Z79.01 Long term (current) use of anticoagulants | CPT/HCPCS: 99214 ==

== ENCOUNTER → 2025-03-10 11:22 | Outpatient (BNVA) | payer OTHER, SELFPAY | PROVIDERS: PCP Family Medicine Geriatric Medicine; Visit Provider Thoracic Surgery (Cardiothoracic Vascular Surgery) | DX: I96 Gangrene, not elsewhere classified (principal); I87.2 Venous insufficiency (chronic) (peripheral); L97.811 Non-pressure chronic ulcer of other part of right lower leg limited to breakdown of skin; L03.116 Cellulitis of left lower limb | CPT/HCPCS: 29581; 97597; A6219 ==

== ENCOUNTER → 2025-03-17 11:10 | Outpatient (BNVA) | payer OTHER, SELFPAY | PROVIDERS: PCP Family Medicine Geriatric Medicine; Visit Provider Thoracic Surgery (Cardiothoracic Vascular Surgery) | DX: I96 Gangrene, not elsewhere classified (principal); I87.2 Venous insufficiency (chronic) (peripheral); L97.811 Non-pressure chronic ulcer of other part of right lower leg limited to breakdown of skin; L97.821 Non-pressure chronic ulcer of other part of left lower leg limited to breakdown of skin; L03.116 Cellulitis of left lower limb | CPT/HCPCS: 97597; A6252 ==

== ENCOUNTER → 2025-03-24 08:25 | Outpatient (BNVA) | payer OTHER, SELFPAY | PROVIDERS: PCP Family Medicine Geriatric Medicine; Visit Provider Thoracic Surgery (Cardiothoracic Vascular Surgery) | DX: I87.2 Venous insufficiency (chronic) (peripheral) (principal); L97.811 Non-pressure chronic ulcer of other part of right lower leg limited to breakdown of skin | CPT/HCPCS: 97597; A6210 ==

== ENCOUNTER → 2025-03-31 11:34 | Outpatient (BNVA) | payer OTHER, SELFPAY | PROVIDERS: PCP Family Medicine Geriatric Medicine; Visit Provider Thoracic Surgery (Cardiothoracic Vascular Surgery) | DX: I96 Gangrene, not elsewhere classified (principal); I87.2 Venous insufficiency (chronic) (peripheral); L97.811 Non-pressure chronic ulcer of other part of right lower leg limited to breakdown of skin | CPT/HCPCS: 97597; A6252 ==